=== PATIENT | male | born 1975 | race Caucasian/White ===

== ENCOUNTER 2023-08-22 19:26 | Inpatient (IN) | payer MEDICAID, SELFPAY ==
[2023-08-22] VITALS (8 sets, daily range): BP systolic 103–142; BP diastolic 46–106; BMI 27.4; BMI 26.9
[2023-08-22 16:58] LABS: % Basophils 0.3 % (0-2); % Immature Granulocytes 0.3 % (0-0.5); % Lymphocytes 19.3 % (20.5-51.1); % Monocytes 7.2 % (1.7-9.3); % Neutrophils 72.9 % (42.2-75.2); Absolute Lymphocytes 2.3 10^3/uL (1.2-3.4); Absolute Monocytes 0.9 10^3/uL (0.1-0.6); Absolute Neutrophils 8.7 10^3/uL (1.4-6.5); Hematocrit 48.8 % (39.0-52.0); Mean Corp Hgb Conc. 34.8 g/dL (33.0-37.0); Mean Corpuscular Hgb 29.8 pg (27.0-31.0); Mean Corpuscular Volume 85.5 fL (80.0-94.0); Mean Platelet Volume 8.6 fL (7.4-10.4); Nucleated Red Blood Cells % 0 % (-); Platelet Count 434 10^3/uL (130-400); Red Blood Cell Count 5.71 10^6/uL (4.70-6.10); Red Cell Dist. Width 11.9 % (11.5-14.5)
[2023-08-22 17:21] LABS: AST (SGOT) 33 U/L (17-59); Albumin 5.4 g/dl (3.5-5.0); Alkaline Phosphatase 98 U/L (38-126); Blood Urea Nitrogen 16 mg/dl (9-20); Calcium 9.8 mg/dl (8.4-10.2); Carbon Dioxide 13 mmol/L (22-30); Chloride 96 mmol/L (98-107); Glucose 98 mg/dl (70-99); Potassium 5.1 mmol/L (3.5-5.1); Sodium 133 mmol/L (135-145); Total Bilirubin 3.6 mg/dl (0.2-1.3); Total Protein 8.7 g/dl (6.3-8.2); eGFR > 60.00
--- NOTE | 2023-08-22 17:23 | ED.GENMED ---
History of Present Illness
General
Chief Complaint: Withdrawal Symptoms
Source: patient
Exam Limitations: none
Time Seen by Provider: 08/22/23 17:06
Nursing documentation reviewed up to this point in time: agreed with
History of Present Illness
History of Present Illness:
Patient to ED in alcohol withdrawal. States he has been clean for 10 years. 10 days ago he started drinking heavily again. Last drink was 12 hours ago. States he believes he had a seizure. Found himself on floor today, incontinent of urine.
Brought self to ED for eval. Visible tremors. +nausea.
Past History
Past History
ED Past Medical History: Psychiatric
Review of Systems
Review of Systems
Allergies reviewed?: Yes
All Other Systems: ROS reviewed and negative except as documented in HPI and ROS
Constitutional: Reports no symptoms
EENT: Reports no symptoms
Respiratory: Reports no symptoms
Cardiac: Reports no symptoms
ABD/GI: Reports no symptoms
: Reports no symptoms
Musculoskeletal: Reports no symptoms
Skin: Reports no symptoms
Neurological: Reports weakness and other (tremors)
Psychiatric: Reports no symptoms
Phy Exam
General Physical Exam
General Presentation: moderate distress
General age: appears stated age
General Skin: warm and dry
General Habitus: normal
General Mental: alert
Cardiovascular Exam
Cardiovascular Exam: regular rate/rhythm
Pulmonary Exam
Pulmonary Exam: lungs clear and no respiratory distress
Gastrointestinal Exam
Gastrointestinal Exam: normal bowel sounds and non tender
Musculoskeletal Exam
Musculoskeletal Exam: full ROM and neuro vasc intact
Skin Exam
Skin Exam: normal color, no rash and diaphoresis
Psychiatric Exam
Psychiatric Exam: normal mood/affect
Scores
Withdrawal Assessment of Alcohol
Withdrawal Assessment Completed?: Yes
Nausea and Vomiting: Mild nausea with no vomiting
Tactile Disturbances: Very mild itching, pins and needles, burning or numbness
Tremor: Severe, even with arms not extended
Auditory Disturbances: Not present
Paroxysmal Sweats: Beads of sweat obvious on forehead
Visual Disturbances: Not present
Anxiety: Moderately anxious, or guarded, so anxiety is inferred
Headache, Fullness in Head: Not present
Agitation: Moderately fidgety and restless
Orientation and clouding of sensorium: Oriented and can do serial additions
Total CIWA Score: 21
Alcohol Withdrawal Medication Recommendation: Equal to MSAS >11. Lorazepam 2-4mg IV NOW and re-assess q1hr
Course
Orders/Labs/Results
Orders:
Orders
08/22/23 Dinner
Regular
At Your Request: Full Participation
08/22/23 16:22
Electrocardiogram (*1) Urgent
Reason for Study: Shortness of Breath
EKG- Treatment ONCE
08/22/23 16:40
Alcohol Urgent
Complete Blood Count/With Diff Urgent
Comprehensive Metabolic Panel Urgent
Magnesium Urgent
Comment: ADDON
08/22/23 17:22
0.9% Sodium Chloride 1000 ml [Nss] 1,000 ml IV BOLUS
Lorazepam [Ativan] 2 mg IV NOW STA
08/22/23 17:32
Drug Screen, Urine [Urine Drug Abuse Screen] Urgent
Urinalysis Reflex To Culture Urgent
Dextrose 50%-Water [Dextrose 50% Syringe] 12.5 grams IV NOW STA
08/22/23 17:37
Ondansetron Injectable [Zofran] 4 mg IV NOW STA
08/22/23 17:38
Add On- LAB Urgent
Tests Added?: alcohol
08/22/23 17:43
FOLic ACID [Folvite] 1 mg 0.9% Sodium Chloride 50 ml [Nss] 50 ml IV NOW
08/22/23 18:00
0.9% Sodium Chloride 1000 ml [Nss] 1,000 ml Mvi, Adult [Multivitamin] 10 ml Thiamine Injection 100 mg IV 100 mls/hr
08/22/23 18:34
Admit/Transfer Patient As Directed
Co-Sign Provider:
Level of Care: Inpatient admission
Assign to:: ICU
Physician / Group: Shaye/Hospitalist
Diagnosis: Acute Alcohol Associated Seizure
Reason for Hospitalization: Alcohol Associated Seizure
Expected length of stay greater than two midnights?: Yes
ELOS- Estimated Length of Stay in days: 5
I certify the patient meets the requirements for IP care: Yes
08/22/23 18:39
Code Status As Directed
Resuscitation Status: Full Code
08/22/23 18:43
Add On- LAB Urgent
Tests Added?: magnesium
08/22/23 18:57
Lactic Acid Urgent
08/22/23 19:23
0.9% Sodium Chloride 500 ml [Nss] 500 ml IV BOLUS
08/22/23 20:39
0.9% Sodium Chloride [Nss (Preservative Free)] See Protocol IV PRN PRN
Bisacodyl [Dulcolax] 10 mg RECTAL [id number] PRN
Docusate W/Senna [Senokot-S] 1 tablet PO BIDPRN PRN
FOLic ACID [Folvite] 1 mg 0.9% Sodium Chloride 50 ml [Nss] 50 ml IV DAILYPRN
Heparin 5,000 units SC Q12
Lorazepam [Ativan] 1 mg IV Q1HPRN PRN
Lorazepam [Ativan] 1 mg PO Q2HPRN PRN
Lorazepam [Ativan] 2 mg IV Q1HPRN PRN
Polyethylene Glycol Powder [Miralax] 17 grams PO DAILYPRN PRN
Thiamine Injection 200 mg IV Q12
08/22/23 20:39
Case Management Consult Once
Case Management Consult: Other
Comment: Substance abuse counseling
Consult Chemical Research Technician [Chemical Research Technician Consult] Routine
Consulting Provider: Miriam,Molly Johnson
Was physician already notified: Yes
DIETARY CONSULT Routine
Reason for Consult: Nutrition support, possible refeeding guidelines
PSYCHIATRY CONSULT Routine
Consulting Provider: David Philippe
Was physician already notified: Yes
Activity As Directed
Activity Level: Out of Bed-Early Mobility
With Assistance
MSAS SCORE As Directed
MSAS Score 0-4: Repeat MSAS every 2 hours until 0-4 for three consecutive assessments, then every 4 hours x 48
hours.
MSAS Score 5-7: For MILD withdrawl symptoms. Repeat MSAS and RASS every 2 hours
MSAS Score 8-11: For MODERATE withdrawal symptoms. Repeat MSAS and RASS every 1 hour. Consider ICU or IMU
level of care.
MSAS Score > 11: For SEVERE withdrawal symptoms. Repeat MSAS and RASS every 1 hour. Notify provider, consider
ICU level of care.
MSAS Additional Instructions: If no improvement or no decrease in score from severe to moderate within 12
hours, consult psychiatry
MSAS Notify Provider: Notify provider if patient requires more than 10 mg of Lorazepam in eight hour period.
Neurological Checks As Directed
Frequency: Per unit guidelines
Vital Signs As Directed
Frequency: Per unit guidelines
DX Deep Vein Thrombosis Video Routine
08/22/23 22:00
Phenobarbital Sodium [Phenobarbital] 97.5 mg IV TID
08/23/23 06:00
Complete Blood Count/No Diff IN AM
Comprehensive Metabolic Panel IN AM
Lactic Acid IN AM
Protime [Prothrombin Time] IN AM
08/23/23 08:00
FOLic ACID [Folvite] 1 mg PO DAILY
08/24/23 22:00
Phenobarbital [Luminal] 64.8 mg PO TID
08/26/23 22:00
Phenobarbital [Luminal] 32.4 mg PO TID
Abnormal Lab Results
08/22/23 08/22/23
16:40 18:57
WBC 12.0 H 10^3/uL
(4.8-10.8)
Plt Count 434 H 10^3/uL
(130-400)
Absolute Neuts (auto) 8.7 H 10^3/uL
(1.4-6.5)
Absolute Monos (auto) 0.9 H 10^3/uL
(0.1-0.6)
Lymphocytes % 19.3 L %
(20.5-51.1)
Sodium 133 L mmol/L
(135-145)
Chloride 96 L mmol/L
(98-107)
Carbon Dioxide 13 L* mmol/L
(22-30)
Lactic Acid 5.1 H* mmol/L
(0.7-2.0)
Total Bilirubin 3.6 H mg/dl
(0.2-1.3)
Total Protein 8.7 H g/dl
(6.3-8.2)
Albumin 5.4 H g/dl
(3.5-5.0)
08/22/23 16:40
08/22/23 16:40
Vital Signs
Initial and Last Documented VS:
Initial Vital Signs
Temp Pulse Resp BP Pulse Ox
97.8 F 120 16 142/106 98
08/22/23 16:18 08/22/23 16:18 08/22/23 16:18 08/22/23 16:18 08/22/23 16:18
Last Documented Vital Signs
Temp Pulse Resp BP Pulse Ox
98.8 F 108 21 109/46 93
08/22/23 21:01 08/22/23 22:15 08/22/23 22:15 08/22/23 22:00 08/22/23 22:15
*Critical Care Note
Total Time (30-74mins, 75-104mins- exclusive of procedures): Not Applicable
Update Note
Update Note:
Case discussed with Dr. Gallardo. CO2 13 Banana bag with thiamine, folate ordered, dextrose. Tremors and diaphoresis. Given 2mg IV ativan. 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 Will admit to hospitalist. Bcares will
be in to speak with patient.
ED Attending Note
-
Portions of this chart may have been created with voice recognition software.� Occasional wrong word or��sound alike� substitutions may have occurred due to the inherent limitations of voice recognition software.
Discharge Plan
Departure
Patient Disposition: Admit
Date of Disposition: 08/22/23
Time of Disposition: 17:45
Presentation/result/management discussed w/ accepting MD/DO: Hospitalist
Condition: Fair
Covid-19: Not Applicable
Discharge Problem:
Alcohol withdrawal
Interventions
Interventions:
*Risk Screen - Suicide Last Done: 08/22/23 20:53
*General Assessment Last Done: 08/22/23 17:26
*Neglect/Abuse Screening Last Done: 08/22/23 17:26
ED- Fall Risk Assessment Last Done: 08/22/23 17:26
*ED COVID-19 Vaccine History Last Done: 08/22/23 20:53
*Nursing Disposition Last Done: 08/22/23 20:34
ED- Neurological Assessment Last Done: 08/22/23 17:26
ED-Psychological Assessment Last Done: 08/22/23 17:26
Discharge Date and Time
Discharge Date/Time: 08/22/23 20:35
[2023-08-22 17:27] LABS: ALT (SGPT) < 30 U/L (0-50)
[2023-08-22] MEDS: NSS 1000 IV (17:30)
[2023-08-22] MEDS: ATIVAN 2 MG IV ×2 (17:30→20:40)
[2023-08-22] MEDS: ZOFRAN 4 MG IV (17:42)
[2023-08-22] MEDS: DEXTROSE 50% SYRINGE 12.5 GRAMS IV (17:46)
[2023-08-22 17:58] LABS: Alcohol 176 mg/dl
[2023-08-22] MEDS: MULTIVITAMIN 1011 MG IV (18:15)
[2023-08-22] MEDS: MULTIVITAMIN 1011 ML IV (18:15)
[2023-08-22] MEDS: FOLVITE 50.2000000000000028 MG IV (18:15)
--- NOTE | 2023-08-22 18:51 | W.PN.HOSP.TC ---
Today's Communication/Plan
-
admit ICU
banana bag
Phenobarb supplement
MSAS protocol
Assessment / Plan
Assessment / Plan
Binge drinking past 10 days with alcohol associated seizure event
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 Episode of seizure, found himself on floor covered in urine. Does not know how long unconscious. Remains very tremulous
BMP with evidence of acidosis
requested ER order stat Lactic Acid
Elevated Bilirubin
P: admit to ICU post seizure
Psych and Sewing Machine Repairer Helper consult will be ordered
full code
Heparin for DVT prophylaxis
see dictated note
Anticipated Discharge: > 48 hours
Subjective/Interval History
-
Date of Service: August 22, 2023
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
Objective Data
-
Labs:
Laboratory Results
08/22/23
16:40
WBC 12.0 H
Hgb 17.0
Hct 48.8
Plt Count 434 H
Sodium 133 L
Potassium 5.1
Chloride 96 L
Carbon Dioxide 13 L*
BUN 16
Creatinine 1.0
Glucose 98
Calcium 9.8
Total Bilirubin 3.6 H
AST 33
ALT < 30
Alkaline Phosphatase 98
Vital Signs:
Vital Signs
Temp Pulse Resp BP Pulse Ox
97.8 F 96 11 117/84 97
08/22/23 16:18 08/22/23 18:15 08/22/23 18:15 08/22/23 18:00 08/22/23 18:15
Review of Systems
-
History Source: Patient and Coordinated Provider
Constitutional: Denies Fever
Respiratory: Reports No Symptoms
Cardiac: Reports No Symptoms
Abdomen/GI: Reports No Symptoms
Genitourinary: Reports No Symptoms
Neuro: Reports Tremors
Physical Exam
-
General: Well Developed, Well Nourished and No Apparent Distress
HEENT: Normocephalic, Atraumatic and Moist Mucous Membranes
Respiratory: Clear to Auscultation; Negative Wheezes, Rales or Rhonchi
Cardiac: Regular Rhythm and S1/S2
GI: Nontender and Nondistended
Musculoskeletal: No Clubbing, No Cyanosis and No Edema
Neuro: Awake, Alert and Oriented
[2023-08-22 19:16] LABS: Lactic Acid 5.1 mmol/L (0.7-2.0)
[2023-08-22 19:23] LABS: Magnesium 2.3 mg/dl (1.6-2.3)
[2023-08-22] MEDS: NSS 500 IV (19:41)
--- NOTE | 2023-08-22 21:05 | PTCARENOTE ---
pt received from er via stretcher- aox3, on room air, nsr to st on monitor. msas 11- pt cooperative, follows all commands. ivf infusing. ativan given per protocol. education provided about safety and poc- vrebalized understanding. all safety
precautions in place. poc discussed with efrain mora.
[2023-08-22] MEDS: PHENOBARBITAL 97.5 MG IV (21:11)
[2023-08-22] MEDS: HEPARIN 5000 UNITS SC (21:11)
[2023-08-22] MEDS: THIAMINE INJECTION 200 MG IV (21:11)
[2023-08-22] MEDS: NSS (PRESERVATIVE FREE) 1 ML IV (21:11)
[2023-08-23] VITALS (23 sets, daily range): BP systolic 96–127; BP diastolic 49–89; BMI 26.9
--- NOTE | 2023-08-23 00:59 | PTCARENOTE ---
assessment unchanged, msas 3. resting comfortably in bed at this time.
[2023-08-23] MEDS: NSS (PRESERVATIVE FREE) 1 ML IV ×4 (01:04→14:17)
[2023-08-23] MEDS: ATIVAN 2 MG IV ×6 (01:04→23:00)
--- NOTE | 2023-08-23 01:08 | PTCARENOTE ---
msas 11- given ativan per protocol- assessment unchanged further
[2023-08-23 04:45] LABS: Hematocrit 37.7 % (39.0-52.0); Hemoglobin 13.6 g/dL (13.0-18.0); Mean Corp Hgb Conc. 36.1 g/dL (33.0-37.0); Mean Corpuscular Volume 83.2 fL (80.0-94.0); Mean Platelet Volume 8.5 fL (7.4-10.4); Platelet Count 293 10^3/uL (130-400); Red Blood Cell Count 4.53 10^6/uL (4.70-6.10); Red Cell Dist. Width 11.9 % (11.5-14.5); White Blood Cell Count 9.9 10^3/uL (4.8-10.8)
[2023-08-23 04:50] LABS: Urine Albumin Trace (Neg - Trace); Urine Bilirubin Negative (Negative); Urine Character Clear (Clear); Urine Color Yellow; Urine Glucose Negative (Negative); Urine Ketone 2+ (Negative); Urine Leukocyte Negative (Negative); Urine Nitrite Negative (Negative); Urine Occult Blood Negative (Negative); Urine Urobilinogen Negative (Neg - 1+)
[2023-08-23 04:54] LABS: INR 1.06; PT 13.6 Sec (11.4-14.6)
[2023-08-23 05:45] LABS: Amphetamines Negative (Negative); Barbiturates Positive (Negative); Benzodiazepines Positive (Negative); Buprenorphine Negative (Negative); Cocaine Negative (Negative); Marijuana Positive (Negative); Methadone Negative (Negative); Methamphetamines Negative (Negative); Opiates Negative (Negative); Phencyclidine Negative (Negative); Tricyclic Antidepressants Negative (Negative)
[2023-08-23 05:51] LABS: ALT (SGPT) 16 U/L (0-50); AST (SGOT) 25 U/L (17-59); Albumin 3.9 g/dl (3.5-5.0); Alkaline Phosphatase 66 U/L (38-126); Blood Urea Nitrogen 21 mg/dl (9-20); Calcium 8.7 mg/dl (8.4-10.2); Carbon Dioxide 23 mmol/L (22-30); Chloride 104 mmol/L (98-107); Estimated Creatinine Clearance > 125 ml/min; Glucose 94 mg/dl (70-99); Lithium < 0.2 mmol/L (0.6-1.2); Potassium 4.9 mmol/L (3.5-5.1); Sodium 135 mmol/L (135-145); Total Bilirubin 4.2 mg/dl (0.2-1.3); Total Protein 6.5 g/dl (6.3-8.2); eGFR > 60.00
[2023-08-23 06:24] LABS: Fentanyl, Urine Negative (Negative)
--- NOTE | 2023-08-23 07:11 | CON.INTV ---
Consultation
Consultation Request
Date/Time Consultation Requested: 05/23/23
Date/Time Consultation Performed: 05/23/23
Performing Provider: Miriam
Reason for Consultation: ICU
Medical History
-
History of Present Illness:
Patient is a 48-year-old male with previous history of chronic alcohol abuse, presenting to ER following being found down on floor today, incontinent of urine. He has visible tremors on arrival with nausea. Had been sober for 10 years, started
binge drinking in the past 10 days, 'gallons' of liquor/wine/beer, which was continuous. Last drink was 12 hours prior to presentation. May have had a seizure, patient does not recall.
He is admitted to ICU for acute alcohol intoxication with concerns for withdrawal, placed on phenobarbital taper.
Past Medical History
Past Medical History: Other (see list below)
Social History
Tobacco: Non-smoker
Alcohol: Binge Drinker
Drug: None
Family History
Family History: Reviewed & Not Pertinent
Allergies / Home Medications
Allergies
Allergy/AdvReac Type Severity Reaction Status Date / Time
Penicillins Allergy Unknown Verified 08/22/23 16:20
Home Medications
�Medication �Instructions �Recorded �Confirmed �Last Taken �Type
clonazepam 0.5 mg tablet 0.5 mg PO BIDPRN PRN anxiety 08/22/23 08/22/23 08/21/23 History
fluoxetine 10 mg capsule 30 mg PO DAILY Mental 08/22/23 08/22/23 08/21/23 History
Health/Anxiety
gabapentin 400 mg capsule 400 mg PO TID Mental Health/Anxiety 08/22/23 08/22/23 08/21/23 History
lithium carbonate 450 mg 900 mg PO HS Mental Health/Anxiety 08/22/23 08/22/23 08/21/23 History
tablet,extended release
Review of Systems
-
History Source: Patient
All other systems: Negative unless noted
Vitals / Labs / Diagnostic Testing
Vital Signs
Temp Pulse Resp BP Pulse Ox
99 F 89 18 96/51 93
08/23/23 04:46 08/23/23 06:00 08/23/23 06:00 08/23/23 06:00 08/23/23 06:00
Lab Data
08/23/23 04:34
08/23/23 04:34
Laboratory Results
08/23/23
04:34
PT 13.6
INR 1.06
Diagnostic Testing:
Physical Exam
-
HEENT: Normocephalic, Anicteric and Moist Mucous Membranes
Cardiovascular: S1/S2 and Regular Rhythm
Respiratory: Clear and Non-Labored Respirations
GI: Soft, Non Distended and Non Tender
Neurology: Awake, Alert, Oriented, AO x 3, No Motor Deficits and Tremors
Skin: Warm, Dry and Good Color
General: Comfortable and Other (anxious appearing but coherent)
Assessment
-
Patient is a 48-year-old male with previous history of chronic alcohol abuse, presenting to ER following being found down on floor today, incontinent of urine. He has visible tremors on arrival with nausea. Had been sober for 10 years, started
binge drinking in the past 10 days, 'gallons' of liquor/wine/beer, which was continuous. Last drink was 12 hours prior to presentation. May have had a seizure, patient does not recall. +AH/VH
He is admitted to ICU for acute alcohol intoxication with concerns for withdrawal, placed on phenobarbital taper.
Acute alcohol intoxication
Rule out seizure
High risk alcohol withdrawal
DTs
Mild leukocytosis
Mild hyponatremia
Metabolic acidosis
Lactic acidosis
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
Chronic alcohol abuse
Plan
ETOH w/d, high risk
DTs likely with +AH/VH
Binge drinking last 10 days, 'gallons'
Denies pain at this time.
Pain/sedation: Phenobarb + MSAS, can add precedex if needed
Psych eval
RASS goals: 0
Hemodynamically stable, not requiring pressors.
Cardiac history reviewed--none
No prior ECHO for review
Monitor on telemetry
Oxygen needs: stable on RA
Prior history of lung disease: none/nonsmoker
Supplemental O2 as indicated to maintain sats > 89%
CXR/CT reviewed indicating small R infiltrate possibly, but otherwise no acute findings
Advance diet as tolerated
Oil Mixer recommendations
Aspiration precautions, HOB > 30 degrees
Speech therapy eval can be considered if at elevated risk
GI prophylaxis if indicated
Creat at baseline, no history of renal disease
Void trials
Follow urine output, critical I/Os
Replete electrolytes as needed
No signs/symptoms suspicious for infectious etiology at this time
Observe off antibiotics for now
Follow fever trend, WBC count
CBC stable, no signs of bleeding or coagulopathy.
DVT prophylaxis as assessed based on risk, including mechanical SCDs
Can transfuse if indicated for Hb <7, plt < 10
INR WNL
No prior h/o diabetes or thyroid disease
Monitor accuchecks PRN/SS coverage if needed
We will follow
Diagnostic Data
Chest X-Ray: 08/23/23, possible small R infiltrate, elevated RHD
CT Scan:
Echo:
PFT's:
Reports and relevant images were personally reviewed.
-----
Critical care time 50 mins -- this includes review of history, physical exam, medications, hemodynamic/ventilator parameters, laboratory data, imaging and discussion with house staff, pharmacy, respiratory therapy, patternmaker pressure cast, and nursing.
[2023-08-23] MEDS: PHENOBARBITAL 97.5 MG IV ×3 (07:57→20:29)
[2023-08-23] MEDS: HEPARIN 5000 UNITS SC ×2 (07:57→20:29)
[2023-08-23] MEDS: FOLVITE 1 MG PO (07:57)
[2023-08-23] MEDS: NSS (PRESERVATIVE FREE) 0.5 ML IV ×3 (07:58→17:11)
[2023-08-23] MEDS: ATIVAN 1 MG IV ×4 (07:58→19:38)
[2023-08-23] MEDS: THIAMINE INJECTION 200 MG IV ×2 (07:59→20:29)
--- NOTE | 2023-08-23 09:00 | PTCARENOTE ---
pt drowsy , pleasant , MSAS 9 , lorazepam given as per protocol , pt NST on monitor BP 105/55 , on room air with sat of 92% and above , lungs are clear , abdomen is soft and non tender , pt tolerated breakfast eating < 50% , pt is diaphoretic and
pt was encouraged to drink fluids , labs noted , will continue to monitor MSAS , pt states he has been drinking large amt of alcohol for 10 days straight
--- NOTE | 2023-08-23 10:42 | CS.PSYCHR ---
Consult Summary - Psychiatry
-
Pt is 48 yo male with history of alcohol dependence, presented after alcohol relapse 10 days ago, with intoxication seizure. 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 Pt states he experienced anxiety sx and went to [facility] for treatment, was prescribed meds. He then had a
'panic attack' and was admitted to the [facility] for 15 days. Pt states he found out there that he was not welcome to return home, went to the [facility] for a period, now staying with mother. Pt was recently started on Prozac, Gabapentin,
[place], and Klonopin prn- states taking it 2 to 3 times per day. Pt reports getting psychiatric treatment at [facility], filing Rx at [facility] in [place]. Pt states he feels down, with negative mind set, doesn't care what happens,
although he denies suicidal plan or intent. Alcohol level on admission 176; UDS + for malcolm,kari (after both given in the ED), MJ. [place]undo level < 0.2.
Psych Hx: first admission above at [facility] recently for depression/anxiety. Past alcohol rehab. Hx of alcohol withdrawal seizures x 6 per pt
Medications: Prozac increased to 30 mg about 1 week ago, Gabapentin 400 mg TID, [place] 900 mg HS, Klonopin 0.5 mg prn 2 to 3 times per day. 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
SH: after 7 years, moved out. 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
MSE: alert, oriented, calm, cooperative, making good eye contact. Mood dysphoric, affect appropriate. No signs of shannan. Denies active SI, has some vague/passive thoughts of better off dying. No signs of psychosis, reports some A/V
hallucinations last night, denies now. Insight fair, states he has no control over alcohol use once he starts
Imp: Alcohol Use d/o, severe; suspected seizure due to alcohol intoxication; withdrawal symptoms- tremors, nausea, hallucinations overnight
Unspecified depression/anxiety, reaction to recent stressors.
Rec: Would restart Prozac and Gabapentin; hold off [place] (may be for antidepressant augmentation, but usually given at low dose). Return to outpatient med mgt when medically cleared.
Agree with Phenobarb taper and MSAS protocol. Consider alcohol rehab referral when medically stable.
Will follow
[2023-08-23] MEDS: ZOFRAN 4 MG IV (12:47)
--- NOTE | 2023-08-23 13:13 | PTCARENOTE ---
pt co nausea medicated with Zofran as ordered, pt MSAS 12 and medicated with 2mg IV Lorazepam as per protocol
--- NOTE | 2023-08-23 14:21 | CM ---
CM following re: discharge planning.
Discussed in rounds, reviewed pt's chart, met with pt.
Pt is a 48 year old male, admitted with primary dx of Acute alcohol-associated seizure.
Pt reports he lives with parents in a 2[place], 4 steps to enter, has 2 children: one in college and another child lives with her mother. 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 pt admitted to
significant h/o alcohol abuse, has been drinking heavily in the past months: scotch, vodka, beer, etc. Pt stated he went to inpatient D&A rehab in 1
--- NOTE | 2023-08-23 14:29 | CM ---
CM following re: discharge planning.
Discussed in rounds, reviewed pt's chart, met with pt.
Pt is a 48 year old male, admitted with primary dx of Acute alcohol-associated seizure.
Pt reports he lives with parents in a 2[place], 4 steps to enter, has 2 children: one in college and another child lives with her mother. 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 pt admitted to
significant h/o alcohol abuse, has been drinking heavily in the past months: scotch, vodka, beer, etc. Pt stated he went to inpatient D&A rehab in 2016, has been sober since than and relapsed a month ago. Pt stated he is interested to go to
inpatient D&A rehab and he preferred [facility] D&A rehab,or [facility] D&A rehab. Pt expressed his agreement to meet with [facility] team. A referral to [facility] made, spoke and met with BCARES MARIAN Moran and MARIAN Danielle. MARIAN Danielle met with pt and he
will assist the pt with admission to [facility] or [facility].
PCP: Naresh Mckinnon
Pharmacy: [facility]
D/C plan: Inpatient D&A rehab. BCARES team assisting with placement.
CM will follow with discharge plan updates as hospitalization progresses
[2023-08-23] MEDS: NEURONTIN 300 MG PO ×2 (16:02→20:28)
--- NOTE | 2023-08-23 16:50 | W.PN.HOSP.TC ---
Today's Communication/Plan
-
resume IVF
Assessment / Plan
Assessment / Plan
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 Episode of seizure, found himself on floor covered in urine. Does not know how long unconscious. Remains very tremulous
BMP with evidence of acidosis on admission
markedly improved. Lactic Acid 5.1-->1.0
CO2 13-->23
Elevated Bilirubin
3.6-->4.2, with nl AST/ALT
P: admit to ICU post seizure
Psych and Rock Crusher consult will be ordered
full code
Heparin for DVT prophylaxis
resume IVF
Anticipated Discharge: > 48 hours
Subjective/Interval History
-
Date of Service: August 23, 2023
Still tremulous, but does not feel as ill as at time of admission
Objective Data
-
Labs:
Laboratory Results
08/23/23
04:34
WBC 9.9
Hgb 13.6
Hct 37.7 L
Plt Count 293 D
PT 13.6
INR 1.06
Sodium 135
Potassium 4.9
Chloride 104
Carbon Dioxide 23
BUN 21 H
Creatinine 0.8
Glucose 94
Calcium 8.7
Total Bilirubin 4.2 H
AST 25
ALT 16
Alkaline Phosphatase 66
Vital Signs:
Vital Signs
Temp Pulse Resp BP Pulse Ox
98.7 F 86 21 127/82 94
08/23/23 15:18 08/23/23 13:00 08/23/23 13:00 08/23/23 13:00 08/23/23 08:30
I&O
08/22/23 08/23/23 08/24/23
06:59 06:59 06:59
Intake Total 1000 / 1000 500 / 500
Output Total 600 / 600 400 / 400
Balance 400 / 400 100 / 100
Review of Systems
-
History Source: Patient and Coordinated Provider
Constitutional: Denies Fever
Respiratory: Reports No Symptoms
Cardiac: Reports No Symptoms
Abdomen/GI: Reports No Symptoms
Genitourinary: Reports No Symptoms
Neuro: Reports Tremors
Physical Exam
-
General: Well Developed, Well Nourished and No Apparent Distress
HEENT: Normocephalic, Atraumatic and Moist Mucous Membranes
Respiratory: Clear to Auscultation; Negative Wheezes, Rales or Rhonchi
Cardiac: Regular Rhythm and S1/S2
GI: Nontender and Nondistended
Musculoskeletal: No Clubbing, No Cyanosis and No Edema
Neuro: Awake, Alert, Oriented and Tremors
Psych: Calm; Negative Confused
[2023-08-23] MEDS: D5/0.45%NACL 1000 IV (17:09)
[2023-08-23] MEDS: THERAGRAN 1 TABLET PO (17:09)
--- NOTE | 2023-08-23 17:52 | PTCARENOTE ---
no change in assessments
--- NOTE | 2023-08-23 19:55 | PTCARENOTE ---
rec'd patient. MSAS 8, ativan given per protocol. pt oriented x3, admits to frequent hallucinations, tremors visible. ST on monitor. afebrile. on RA, denies SOB. reg diet, dinner provided at bedside. urinal at bedside. IVF infusing. call adam within
reach, care ongoing.
[2023-08-24] VITALS (23 sets, daily range): BP systolic 90–126; BP diastolic 53–89; BMI 26.9
[2023-08-24] MEDS: ATIVAN 2 MG IV ×2 (01:33→13:55)
[2023-08-24] MEDS: D5/0.45%NACL 1000 IV (04:07)
[2023-08-24] MEDS: ATIVAN 1 MG IV ×4 (04:07→22:08)
--- NOTE | 2023-08-24 04:30 | PTCARENOTE ---
AM labs sent. PRN ativan given per MSAS protocol overnight. fresh linens placed under pt this morning. pt admits to getting decent rest overnight. call adam within reach, care ongoing.
[2023-08-24 04:31] LABS: % Basophils 0.2 % (0-2); % Eosinophils 4.3 % (0-6); % Immature Granulocytes 0.4 % (0-0.5); % Lymphocytes 25.1 % (20.5-51.1); % Monocytes 15.1 % (1.7-9.3); % Neutrophils 54.9 % (42.2-75.2); Absolute Eosinophils 0.2 10^3/uL (0-0.7); Absolute Lymphocytes 1.3 10^3/uL (1.2-3.4); Absolute Monocytes 0.8 10^3/uL (0.1-0.6); Absolute Neutrophils 2.8 10^3/uL (1.4-6.5); Hematocrit 37.7 % (39.0-52.0); Hemoglobin 12.9 g/dL (13.0-18.0); Mean Corp Hgb Conc. 34.2 g/dL (33.0-37.0); Mean Corpuscular Hgb 30.1 pg (27.0-31.0); Mean Corpuscular Volume 87.9 fL (80.0-94.0); Mean Platelet Volume 8.7 fL (7.4-10.4); Nucleated Red Blood Cells % 0 % (-); Platelet Count 213 10^3/uL (130-400); Red Blood Cell Count 4.29 10^6/uL (4.70-6.10); Red Cell Dist. Width 11.9 % (11.5-14.5); White Blood Cell Count 5.1 10^3/uL (4.8-10.8)
[2023-08-24 05:26] LABS: ALT (SGPT) 15 U/L (0-50); AST (SGOT) 23 U/L (17-59); Albumin 3.3 g/dl (3.5-5.0); Alkaline Phosphatase 68 U/L (38-126); Blood Urea Nitrogen 21 mg/dl (9-20); Calcium 8.4 mg/dl (8.4-10.2); Carbon Dioxide 24 mmol/L (22-30); Chloride 104 mmol/L (98-107); Direct Bilirubin 0.2 mg/dl (0.0-0.4); Estimated Creatinine Clearance > 125 ml/min; Glucose 106 mg/dl (70-99); Potassium 3.7 mmol/L (3.5-5.1); Sodium 133 mmol/L (135-145); Total Bilirubin 2.1 mg/dl (0.2-1.3); Total Protein 5.9 g/dl (6.3-8.2); eGFR > 60.00
--- NOTE | 2023-08-24 07:10 | W.PN.INTV ---
Today's Communication / Plan
Recommendations
Increased ativan use overnight, continue phenobarb dosing at 97.5mg without taper
Continue MSAS and observation
Tolerating diet, can stop IVFs
Continue supportive care
Assessment
-
Patient is a 48-year-old male with previous history of chronic alcohol abuse, presenting to ER following being found down on floor today, incontinent of urine. He has visible tremors on arrival with nausea. Had been sober for 10 years, started
binge drinking in the past 10 days, 'gallons' of liquor/wine/beer, which was continuous. Last drink was 12 hours prior to presentation. May have had a seizure, patient does not recall. +AH/VH
He is admitted to ICU for acute alcohol intoxication with concerns for withdrawal, placed on phenobarbital taper.
Acute alcohol intoxication
Acute alcohol withdrawal
DTs
Mild leukocytosis
Mild hyponatremia
Metabolic acidosis
Lactic acidosis
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
Chronic alcohol abuse
Plan
ETOH w/d, high risk
DTs likely with +AH/VH
Binge drinking last 10 days, 'gallons'
Denies pain at this time.
Pain/sedation: Phenobarb + MSAS, can add precedex if needed
Psych eval
RASS goals: 0
Hemodynamically stable, not requiring pressors.
Cardiac history reviewed--none
No prior ECHO for review
Monitor on telemetry
Oxygen needs: stable on RA
Prior history of lung disease: none/nonsmoker
Supplemental O2 as indicated to maintain sats > 89%
CXR/CT reviewed indicating small R infiltrate possibly, but otherwise no acute findings
Advance diet as tolerated
Baker Bench recommendations
Aspiration precautions, HOB > 30 degrees
Speech therapy eval can be considered if at elevated risk
GI prophylaxis if indicated
Creat at baseline, no history of renal disease
Void trials
Follow urine output, critical I/Os
Replete electrolytes as needed
No signs/symptoms suspicious for infectious etiology at this time
Observe off antibiotics for now
Follow fever trend, WBC count
CBC stable, no signs of bleeding or coagulopathy.
DVT prophylaxis as assessed based on risk, including mechanical SCDs
Can transfuse if indicated for Hb <7, plt < 10
INR WNL
No prior h/o diabetes or thyroid disease
Monitor accuchecks PRN/SS coverage if needed
Diagnostic Data
Chest X-Ray: 08/23/23, possible small R infiltrate, elevated RHD
CT Scan:
Echo:
PFT's:
Reports and relevant images were personally reviewed.
-----
Critical care time 35 mins -- this includes review of history, physical exam, medications, hemodynamic/ventilator parameters, laboratory data, imaging and discussion with house staff, pharmacy, respiratory therapy, office services representative, and nursing.
Subjective Dataa
Subjective Data
Date of Service:
Date of Service: August 24, 2023
Chief Complaint: Rn Field Follow Up
Subjective:
still tremulous, received 14mg ativan overnight
still with hallucinations
tolerating diet
Objective Data
Data Reviewed
Vital Signs / I&O / Oxygen:
Vital Signs
Temp Pulse Resp BP Pulse Ox
98.5 F 64 13 91/56 94
08/24/23 04:23 08/24/23 06:00 08/24/23 06:00 08/24/23 06:00 08/24/23 06:00
Intake and Output
08/23/23 08/24/23 08/25/23
06:59 06:59 06:59
Intake Total 1000 / 1000 4270 / 4270
Output Total 600 / 600 800 / 800
Balance 400 / 400 3470 / 3470
SaO2 94
Physical Exam
General: Good Appetite and Other (anxious)
HEENT: Normocephalic, Anicteric and Moist Mucous Membranes
Cardiovascular: S1-S2 and Regular Rhythm
Respiratory: Clear and Non-Labored Respirations
GI: Soft, Non Distended and Non Tender
Neurology: Awake, Alert, Oriented, AO x 3, No Motor Deficits, Tremors and Other (+AH/VH)
Skin: Warm and Dry
Labs/Micro/Reports
Lab Data
08/24/23 04:21
08/24/23 04:21
--- NOTE | 2023-08-24 08:00 | PTCARENOTE ---
pt drowsy , oriented to time and place, pt MSAS 7-8 , pt NSR on monitor , BP 91/56, on room air with sat of 95% , pt is very diaphoretic , tremulous , having hallucinations at times , impulsive at times , tolerating diet , good appetite , voiding in
urinal
[2023-08-24] MEDS: THERAGRAN 1 TABLET PO (08:46)
[2023-08-24] MEDS: PROZAC 20 MG PO (08:46)
[2023-08-24] MEDS: NEURONTIN 300 MG PO ×3 (08:46→20:14)
[2023-08-24] MEDS: PHENOBARBITAL 97.5 MG IV ×2 (08:47→15:20)
[2023-08-24] MEDS: HEPARIN 5000 UNITS SC (08:47)
[2023-08-24] MEDS: FOLVITE 1 MG PO (08:47)
[2023-08-24] MEDS: THIAMINE INJECTION 200 MG IV ×2 (08:48→20:14)
[2023-08-24] MEDS: NSS (PRESERVATIVE FREE) 0.5 ML IV (10:17)
--- NOTE | 2023-08-24 12:31 | PTCARENOTE ---
MSAS now 4 , pt is comfortable , will continue to monitor
--- NOTE | 2023-08-24 12:44 | W.PN.UPDATE ---
Update Note
Progress Note Update
patient seen chart reviewed. discussed with nursing. the patient was very sedated. i was able to wake him and we talked briefly about his psychiatric medications. he wanted to know if he should resume lithium. it sounds as though lithium was being
used as a adjunct to rx of depression for patient rather than as mood stabilizer for bipolar. i could not elicit sx which would suggest bipolar. that said would wait a bit longer and make a decision as to whether it should be resumed when he is out
of the period of etoh withdrawal. he asked if we could continue our conversation tomorrow 'when i am more lucid.' no changes made in his meds continue as currently
[2023-08-24] MEDS: NSS (PRESERVATIVE FREE) 1 ML IV (13:55)
--- NOTE | 2023-08-24 17:04 | W.PN.HOSP.TC ---
Today's Communication/Plan
-
pt eating well, will stop IVF
continue in ICU for now
Assessment / Plan
Assessment / Plan
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
Pt states was abstinent for 10 years, due to life stresses started to binge drink 10 days PATIENT REGISTRAR. Episode of seizure, found himself on floor covered in urine. Does not know how long unconscious. Remains very tremulous, as per nursing, has been
eating well
BMP with evidence of acidosis on admission
markedly improved. Lactic Acid 5.1-->1.0
CO2 13-->23-->24
Elevated Bilirubin
3.6-->4.2-->2.1, with nl AST/ALT
Direct Bili 0.2
P: admit to ICU post seizure
Psych and Social Media Marketing Specialist consult will be ordered
full code
Heparin for DVT prophylaxis
will stop IVF
Anticipated Discharge: > 48 hours
Subjective/Interval History
-
Date of Service: August 24, 2023
Awake, alert
Objective Data
-
Labs:
Laboratory Results
08/24/23
04:21
Sodium 133 L
Potassium 3.7
Chloride 104
Carbon Dioxide 24
BUN 21 H
Creatinine 0.8
Glucose 106 H
Calcium 8.4
Total Bilirubin 2.1 H
AST 23
ALT 15
Alkaline Phosphatase 68
Vital Signs:
Vital Signs
Temp Pulse Resp BP Pulse Ox
97.8 F 74 20 96/72 98
08/24/23 12:26 08/24/23 16:00 08/24/23 16:00 08/24/23 16:00 08/24/23 10:00
I&O
08/23/23 08/24/23 08/25/23
06:59 06:59 06:59
Intake Total 1000 / 1000 4270 / 4350 1550 / 1550
Output Total 600 / 600 800 / 1700 2200 / 2200
Balance 400 / 400 3470 / 2650 -650 / -650
Review of Systems
-
History Source: Patient and Coordinated Provider
Constitutional: Denies Fever
Respiratory: Reports No Symptoms
Cardiac: Reports No Symptoms
Abdomen/GI: Reports No Symptoms
Genitourinary: Reports No Symptoms
Neuro: Reports Tremors
Physical Exam
-
General: Well Developed, Well Nourished and No Apparent Distress
HEENT: Normocephalic, Atraumatic and Moist Mucous Membranes
Respiratory: Clear to Auscultation; Negative Wheezes, Rales or Rhonchi
Cardiac: Regular Rhythm and S1/S2
GI: Nontender and Nondistended
Musculoskeletal: No Clubbing, No Cyanosis and No Edema
Neuro: Awake, Alert, Oriented and Tremors
Psych: Calm; Negative Confused
[2023-08-24] MEDS: LOVENOX 40 MG SC (17:32)
[2023-08-24] MEDS: ATIVAN 1 MG PO (20:14)
[2023-08-24] MEDS: LUMINAL 64.7999999999999972 MG PO (20:14)
--- NOTE | 2023-08-24 20:20 | PTCARENOTE ---
rec'd patient. MSAS 5, PO ativan given per protocol. pt oriented x3, admits to frequent hallucinations, mild tremors visible. SR on monitor. afebrile. on RA, denies SOB. reg diet, urinal at bedside. both PIVs occluded upon assessment, VAT paged. pt
educated to use call adam when he feel he needs to urinate rather than get out of bed for safety reasons. bed alarm on. call adam within reach, care ongoing.
[2023-08-25] VITALS (16 sets, daily range): BP systolic 93–121; BP diastolic 55–71; BMI 27.2
[2023-08-25] MEDS: ATIVAN 1 MG IV ×3 (01:56→13:36)
[2023-08-25 04:35] LABS: % Basophils 0.3 % (0-2); % Eosinophils 5.5 % (0-6); % Immature Granulocytes 0.5 % (0-0.5); % Lymphocytes 22.9 % (20.5-51.1); % Monocytes 12.5 % (1.7-9.3); % Neutrophils 58.3 % (42.2-75.2); Absolute Eosinophils 0.3 10^3/uL (0-0.7); Absolute Lymphocytes 1.3 10^3/uL (1.2-3.4); Absolute Monocytes 0.7 10^3/uL (0.1-0.6); Absolute Neutrophils 3.4 10^3/uL (1.4-6.5); Hematocrit 36.9 % (39.0-52.0); Hemoglobin 13.1 g/dL (13.0-18.0); Mean Corp Hgb Conc. 35.5 g/dL (33.0-37.0); Mean Corpuscular Hgb 30.3 pg (27.0-31.0); Mean Corpuscular Volume 85.4 fL (80.0-94.0); Mean Platelet Volume 8.8 fL (7.4-10.4); Nucleated Red Blood Cells % 0 % (-); Platelet Count 236 10^3/uL (130-400); Red Blood Cell Count 4.32 10^6/uL (4.70-6.10); Red Cell Dist. Width 11.9 % (11.5-14.5); White Blood Cell Count 5.8 10^3/uL (4.8-10.8)
[2023-08-25 04:59] LABS: ALT (SGPT) 16 U/L (0-50); AST (SGOT) 23 U/L (17-59); Albumin 3.4 g/dl (3.5-5.0); Alkaline Phosphatase 71 U/L (38-126); Blood Urea Nitrogen 16 mg/dl (9-20); Calcium 8.8 mg/dl (8.4-10.2); Carbon Dioxide 26 mmol/L (22-30); Chloride 104 mmol/L (98-107); Estimated Creatinine Clearance > 125 ml/min; Glucose 103 mg/dl (70-99); Potassium 3.8 mmol/L (3.5-5.1); Sodium 136 mmol/L (135-145); Total Bilirubin 1.2 mg/dl (0.2-1.3); Total Protein 5.9 g/dl (6.3-8.2); eGFR > 60.00
--- NOTE | 2023-08-25 05:00 | PTCARENOTE ---
AM labs sent. pt repositioning self in bed. RUE midline placed by VAT overnight. call adam within reach, care ongoing. bed alarm remains on.
--- NOTE | 2023-08-25 07:08 | W.PN.INTV ---
Today's Communication / Plan
Recommendations
Doing better, can start to taper phenobarb dosing
Continue MSAS
Tolerating diet, encouraged OOB
Thiamine/folate continued
Psych on board
Can transfer to floors at this time, we will sign off upon transfer
Assessment
-
Patient is a 48-year-old male with previous history of chronic alcohol abuse, presenting to ER following being found down on floor today, incontinent of urine. He has visible tremors on arrival with nausea. Had been sober for 10 years, started
binge drinking in the past 10 days, 'gallons' of liquor/wine/beer, which was continuous. Last drink was 12 hours prior to presentation. May have had a seizure, patient does not recall. +AH/VH
He is admitted to ICU for acute alcohol intoxication with concerns for withdrawal, placed on phenobarbital taper.
Acute alcohol intoxication
Acute alcohol withdrawal
DTs
Mild leukocytosis
Mild hyponatremia
Metabolic acidosis
Lactic acidosis
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
Chronic alcohol abuse
Plan
ETOH w/d, high risk
DTs likely with +AH/VH
Binge drinking last 10 days, 'gallons'
Denies pain at this time.
Pain/sedation: Phenobarb + MSAS, can start to taper phenobarb
Psych eval
RASS goals: 0
Hemodynamically stable, not requiring pressors.
Cardiac history reviewed--none
No prior ECHO for review
Monitor on telemetry
Oxygen needs: stable on RA
Prior history of lung disease: none/nonsmoker
Supplemental O2 as indicated to maintain sats > 89%
CXR/CT reviewed indicating small R infiltrate possibly, but otherwise no acute findings
Advance diet as tolerated
Intrusion Analyst recommendations
Aspiration precautions, HOB > 30 degrees
Speech therapy eval can be considered if at elevated risk
GI prophylaxis if indicated
Creat at baseline, no history of renal disease
Void trials
Follow urine output, critical I/Os
Replete electrolytes as needed
No signs/symptoms suspicious for infectious etiology at this time
Observe off antibiotics for now
Follow fever trend, WBC count
CBC stable, no signs of bleeding or coagulopathy.
DVT prophylaxis as assessed based on risk, including mechanical SCDs
Can transfuse if indicated for Hb <7, plt < 10
INR WNL
No prior h/o diabetes or thyroid disease
Monitor accuchecks PRN/SS coverage if needed
Diagnostic Data
Chest X-Ray: 08/23/23, possible small R infiltrate, elevated RHD
CT Scan:
Echo:
PFT's:
Reports and relevant images were personally reviewed.
-----
Critical care time 35 mins -- this includes review of history, physical exam, medications, hemodynamic/ventilator parameters, laboratory data, imaging and discussion with house staff, pharmacy, respiratory therapy, blow mold technician, and nursing.
Subjective Dataa
Subjective Data
Date of Service:
Date of Service: August 25, 2023
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
Subjective:
doing well with withdrawal
less ativan use overnight
less hallucinations/tremors are noted
Objective Data
Data Reviewed
Vital Signs / I&O / Oxygen:
Vital Signs
Temp Pulse Resp BP Pulse Ox
98.8 F 67 14 96/64 93
08/25/23 03:54 08/25/23 06:00 08/25/23 06:00 08/25/23 06:00 08/25/23 06:03
Intake and Output
08/24/23 08/25/23 08/26/23
06:59 06:59 06:59
Intake Total 4270 / 4350 2040 / 2040
Output Total 800 / 1700 2200 / 2200
Balance 3470 / 2650 -160 / -160
SaO2 93
Physical Exam
General: Good Appetite and Other (anxious)
HEENT: Normocephalic, Anicteric and Moist Mucous Membranes
Cardiovascular: S1-S2 and Regular Rhythm
Respiratory: Clear and Non-Labored Respirations
GI: Soft, Non Distended and Non Tender
Neurology: Awake, Alert, Oriented, AO x 3, No Motor Deficits, Tremors and Other (+AH/VH)
Skin: Warm and Dry
Labs/Micro/Reports
Lab Data
08/25/23 04:14
08/25/23 04:14
[2023-08-25] MEDS: PROZAC 20 MG PO (08:20)
[2023-08-25] MEDS: LUMINAL 64.7999999999999972 MG PO ×3 (08:20→21:23)
[2023-08-25] MEDS: THERAGRAN 1 TABLET PO (08:20)
[2023-08-25] MEDS: FOLVITE 1 MG PO (08:20)
[2023-08-25] MEDS: THIAMINE INJECTION 200 MG IV (08:21)
[2023-08-25] MEDS: NEURONTIN 300 MG PO ×3 (08:21→21:26)
--- NOTE | 2023-08-25 09:22 | PTCARENOTE ---
rec'd patient. MSAS 2. pt oriented x3. SR on monitor. afebrile. on RA, denies SOB. reg diet, urinal at bedside. ML IV WNL. pt educated to use call adam when he feel he needs to urinate rather than get out of bed for safety reasons. bed alarm on.
call adam within reach, care ongoing.
--- NOTE | 2023-08-25 11:07 | W.PN.UPDATE ---
Update Note
Progress Note Update
patient seen chart reviewed. spoke with case mgt. the patient reports not feeling very well. still feels 'not lucid' although strictly speaking he did not appear to be in any type of delirium. he is using less ativan....received nine mg yesterday
as per amsas two mg so far today but the day is still young. vital signs are on the low side. i wondered if we may be oversedating him. discussed w pharmacy. he did receive several 2 mg doses of ativan yesterday. he is on phenobarb taper. . he
is accepting of in patient rehab which is a good choice for him. cm investigating [facility] or [facility]. will continue to follow
[2023-08-25] MEDS: ATIVAN 1 MG PO ×2 (11:57→16:15)
--- NOTE | 2023-08-25 12:57 | W.PN.HOSP.TC ---
Today's Communication/Plan
-
transfer OOICU
CM consult, hopefully inpt Eto[facility] rehab
Assessment / Plan
Assessment / Plan
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 Episode of seizure, found himself on floor covered in urine. Does not know how long unconscious. Was very tremulous, markedly decreased, as per
nursing, has been eating well
BMP with evidence of acidosis on admission
markedly improved. Lactic Acid 5.1-->1.0
CO2 13-->23-->24
Elevated Bilirubin
3.6-->4.2-->2.1-->1.2, with nl AST/ALT
Direct Bili 0.2
P: admit to ICU post seizure
Psych and Supervisor Electronics Assembly consult were ordered
full code
Heparin for DVT prophylaxis
doing better, will transfer to tele
Anticipated Discharge: 24 - 48 hours
Subjective/Interval History
-
Date of Service: August 25, 2023
Looks much better, more awake and conversant
Objective Data
-
Labs:
Laboratory Results
08/25/23
04:14
WBC 5.8
Hgb 13.1
Hct 36.9 L
Plt Count 236
Sodium 136
Potassium 3.8
Chloride 104
Carbon Dioxide 26
BUN 16
Creatinine 0.8
Glucose 103 H
Calcium 8.8
Total Bilirubin 1.2
AST 23
ALT 16
Alkaline Phosphatase 71
Vital Signs:
Vital Signs
Temp Pulse Resp BP Pulse Ox
98.2 F 71 19 103/59 95
08/25/23 07:36 08/25/23 12:00 08/25/23 12:00 08/25/23 12:00 08/25/23 08:00
I&O
08/24/23 08/25/23 08/26/23
06:59 06:59 06:59
Intake Total 4270 / 4350 2039
Output Total 800 / 1700 0 / 2200
Balance 3470 / 2650 -160 / -160
Review of Systems
-
History Source: Patient and Coordinated Provider
Constitutional: Denies Fever
Respiratory: Reports No Symptoms
Cardiac: Reports No Symptoms
Abdomen/GI: Reports No Symptoms
Genitourinary: Reports No Symptoms
Neuro: Reports Tremors
Physical Exam
-
General: Well Developed, Well Nourished and No Apparent Distress
HEENT: Normocephalic, Atraumatic and Moist Mucous Membranes
Respiratory: Clear to Auscultation; Negative Wheezes, Rales or Rhonchi
Cardiac: Regular Rhythm and S1/S2
GI: Nontender and Nondistended
Musculoskeletal: No Clubbing, No Cyanosis and No Edema
Neuro: Awake, Alert, Oriented and Tremors (may have decreased)
Psych: Calm; Negative Confused
[2023-08-25] MEDS: NSS (PRESERVATIVE FREE) 0.5 ML IV (13:37)
--- NOTE | 2023-08-25 13:50 | CM ---
CM following re: discharge planning.
Discussed in rounds, reviewed pt's chart, met with pt. Per Rounds, continue supportive care. Psychiatry and [facility] following.
CM spoke to [facility] Shashi and he stated he spoke to [facility], they accept [place] Medicaid and they will accept the pt for admission when pt is medically stable.
D/C plan: [facility] D&A rehab when medically stable.
CM will follow with discharge plan updates as hospitalization progresses
--- NOTE | 2023-08-25 14:54 | PTCARENOTE ---
Report given to 4W. Pt assisted to wheelchair and escorted to [id number] without issue.
[2023-08-25] MEDS: LOVENOX 40 MG SC (16:14)
[2023-08-25] MEDS: VITAMIN B1 100 MG PO (21:23)
[2023-08-26 03:00] VITALS: BP 100/63
[2023-08-26 05:22] LABS: % Basophils 0.2 % (0-2); % Eosinophils 6.9 % (0-6); % Immature Granulocytes 0.7 % (0-0.5); % Lymphocytes 31.7 % (20.5-51.1); % Neutrophils 47.5 % (42.2-75.2); Absolute Eosinophils 0.4 10^3/uL (0-0.7); Absolute Lymphocytes 1.8 10^3/uL (1.2-3.4); Absolute Monocytes 0.7 10^3/uL (0.1-0.6); Absolute Neutrophils 2.7 10^3/uL (1.4-6.5); Hematocrit 40.1 % (39.0-52.0); Hemoglobin 13.6 g/dL (13.0-18.0); Mean Corp Hgb Conc. 33.9 g/dL (33.0-37.0); Mean Corpuscular Hgb 29.8 pg (27.0-31.0); Mean Corpuscular Volume 87.9 fL (80.0-94.0); Mean Platelet Volume 8.9 fL (7.4-10.4); Nucleated Red Blood Cells % 0 % (-); Platelet Count 243 10^3/uL (130-400); Red Blood Cell Count 4.56 10^6/uL (4.70-6.10); White Blood Cell Count 5.6 10^3/uL (4.8-10.8)
[2023-08-26 05:52] LABS: ALT (SGPT) 26 U/L (0-50); AST (SGOT) 36 U/L (17-59); Albumin 3.7 g/dl (3.5-5.0); Alkaline Phosphatase 76 U/L (38-126); Blood Urea Nitrogen 17 mg/dl (9-20); Calcium 9.1 mg/dl (8.4-10.2); Carbon Dioxide 27 mmol/L (22-30); Chloride 103 mmol/L (98-107); Estimated Creatinine Clearance > 125 ml/min; Glucose 93 mg/dl (70-99); Potassium 3.9 mmol/L (3.5-5.1); Sodium 136 mmol/L (135-145); Total Bilirubin 0.8 mg/dl (0.2-1.3); Total Protein 6.4 g/dl (6.3-8.2); eGFR > 60.00
[2023-08-26 07:00] VITALS: BP 107/55
[2023-08-26] MEDS: PROZAC 20 MG PO (07:51)
[2023-08-26] MEDS: THERAGRAN 1 TABLET PO (07:51)
[2023-08-26] MEDS: NEURONTIN 300 MG PO ×3 (07:51→21:00)
[2023-08-26] MEDS: FOLVITE 1 MG PO (07:51)
[2023-08-26] MEDS: VITAMIN B1 100 MG PO ×2 (07:52→20:55)
[2023-08-26] MEDS: LUMINAL 64.7999999999999972 MG PO ×2 (07:52→17:22)
[2023-08-26 11:11] VITALS: BP 112/63
--- NOTE | 2023-08-26 11:51 | W.PN.UPDATE ---
Update Note
Progress Note Update
patient seen chart reviewed discussed w nursing and cm. the patient still looks very lethargic and sickly. his msas scores have been quite low but he was rather tremulous when i saw him. he is still committed to a dual dx unit which is appropriate
for him. perhaps what i am seeing in his demeanor is depression rather than the sx of withdrawal (except for the tremor which is secondary to etoh wd.) would continue w meds as they are for now. he would like [facility] dual dx which i
communicated to cm. i am dcing the josefina prn as he is still on the msas ativan protocol.
[2023-08-26 15:00] VITALS: BP 112/77
--- NOTE | 2023-08-26 15:27 | CM ---
Patient seen at bedside. Patient states he does not feel well, confirmed plan remains to work with [facility] for placement at [facility] or [facility]. CM will continue to follow for discharge planning needs.
PLan; work with [facility] about placement.
--- NOTE | 2023-08-26 16:42 | W.PN.HOSP.TC ---
Today's Communication/Plan
-
continue current Tx
Assessment / Plan
Assessment / Plan
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 Episode of seizure, found himself on floor covered in urine. Does not know how long unconscious. Was very tremulous, markedly decreased, as per
nursing, has been eating well
BMP with evidence of acidosis on admission
markedly improved. Lactic Acid 5.1-->1.0
CO2 13-->23-->24
Elevated Bilirubin
3.6-->4.2-->2.1-->1.2-->0.8, with nl AST/ALT
Direct Bili 0.2
P: Pt has been transferred OOICU
Psych input appreciated. Pt relates that he would prefer to go to the [facility] and I think this would be appropriate
full code
Heparin for DVT prophylaxis
doing better, but still demonstrates a very flat affect and remains tremulous. Not ready for dc
Anticipated Discharge: > 48 hours
Subjective/Interval History
-
Date of Service: August 26, 2023
Looks better, less shaky, but not fully resolved
Objective Data
-
Labs:
Laboratory Results
08/26/23
04:58
WBC 5.6
Hgb 13.6
Hct 40.1
Plt Count 243
Sodium 136
Potassium 3.9
Chloride 103
Carbon Dioxide 27
BUN 17
Creatinine 0.8
Glucose 93
Calcium 9.1
Total Bilirubin 0.8
AST 36
ALT 26
Alkaline Phosphatase 76
Vital Signs:
Vital Signs
Temp Pulse Resp BP Pulse Ox
98.1 F 93 18 112/77 96
08/26/23 15:00 08/26/23 15:00 08/26/23 15:00 08/26/23 15:00 08/26/23 15:00
I&O
08/25/23 08/26/23 08/27/23
06:59 06:59 06:59
Intake Total 2039 / 2039 600 / 600
Output Total 2199 / 2199
Balance -160 / -160 600 / 600
Review of Systems
-
History Source: Patient and Coordinated Provider
Constitutional: Denies Fever
Respiratory: Reports No Symptoms
Cardiac: Reports No Symptoms
Abdomen/GI: Reports No Symptoms
Genitourinary: Reports No Symptoms
Neuro: Reports Tremors
Physical Exam
-
General: Well Developed, Well Nourished and No Apparent Distress
HEENT: Normocephalic, Atraumatic and Moist Mucous Membranes
Respiratory: Clear to Auscultation; Negative Wheezes, Rales or Rhonchi
Cardiac: Regular Rhythm and S1/S2
GI: Nontender and Nondistended
Musculoskeletal: No Clubbing, No Cyanosis and No Edema
Neuro: Awake, Alert, Oriented and Tremors ( decreased not resolved)
Psych: Calm; Negative Confused
[2023-08-26] MEDS: LOVENOX 40 MG SC (17:21)
[2023-08-26] MEDS: KLONOPIN 0.5 MG PO (18:19)
[2023-08-26 19:55] VITALS: BP 104/65
[2023-08-26] MEDS: LUMINAL 32.3999999999999986 MG PO (21:00)
[2023-08-26 23:42] VITALS: BP 104/63
[2023-08-27] VITALS (7 sets, daily range): BP systolic 106–133; BP diastolic 65–84
[2023-08-27] MEDS: THERAGRAN 1 TABLET PO (08:17)
[2023-08-27] MEDS: LUMINAL 32.3999999999999986 MG PO ×3 (08:17→21:21)
[2023-08-27] MEDS: PROZAC 20 MG PO (08:17)
[2023-08-27] MEDS: NEURONTIN 300 MG PO ×3 (08:17→21:21)
[2023-08-27] MEDS: VITAMIN B1 100 MG PO ×2 (08:17→20:18)
[2023-08-27] MEDS: FOLVITE 1 MG PO (08:23)
[2023-08-27] MEDS: ATIVAN 1 MG PO ×3 (08:40→20:18)
--- NOTE | 2023-08-27 10:02 | PTCARENOTE ---
DR Cr aware that pt states he is continuing to have hallucinations ( he's talking to people in the room, feels like he's in a movie).Made him aware of pt's concerns that he is not receiving his medication the way he takes it at home. He is
getting 20mg of Prozac but takes 30mg at home. Also his Klonopin is ordered prn and he takes it 3 times a day scheduled. Psychatrist reproduction production manager was on unit and Dr Cr spoke with him about the medications. He will discuss with pt when he sees him.
--- NOTE | 2023-08-27 11:31 | W.PN.UPDATE ---
Update Note
Progress Note Update
Patient reports he feels lack of energy, poor motivation, dysphoria even if not drinking. Feels he tends to self medicate with alcohol. He denies active suicidal thoughts but at times has passive ones; it would not bother him if he by natural
.
Agreeable to go to [facility].
He states the medication that helped most for depression was Prozac and Klonopin; he was taking 30 mg of Prozac and 0.5 tid of Klonopin.
I will increase the Prozac to 30 but would leave the Klonopin as prn only as regular benzodiazepine in patients with ANASTASIA is generally not a good idea and likely will not be allowed in rehab facility.
Will F/U.
[2023-08-27] MEDS: KLONOPIN 0.5 MG PO ×2 (12:13→22:39)
--- NOTE | 2023-08-27 12:51 | W.PN.HOSP.TC ---
Today's Communication/Plan
-
Doing better, await completing arrangements to go to inpt Etoh rehab
Assessment / Plan
Assessment / Plan
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 Episode of seizure, found himself on floor covered in urine. Does not know how long unconscious. Was very tremulous, markedly decreased, as per
nursing, has been eating well.
Situation reviewed with Dr. Philippe
Pt will complete Phenobarb 32.4 mg tid 16:01 on 08/27.
BMP with evidence of acidosis on admission
markedly improved. Lactic Acid 5.1-->1.0
CO2 13-->23-->24
Elevated Bilirubin
3.6-->4.2-->2.1-->1.2-->0.8, with nl AST/ALT
Direct Bili 0.2
P: Pt has been transferred OOICU
Psych input appreciated. Pt relates that he would prefer to go to the [facility] and I think this would be appropriate
full code
Heparin for DVT prophylaxis
doing better, but still demonstrates a very flat affect and remains tremulous. Hopefully arrangements can be completed for inpt care at [facility] in next 1-2 days, appears stable for dc once arrangements completed
Anticipated Discharge: 24 - 48 hours
Subjective/Interval History
-
Date of Service: August 27, 2023
Conversant, still feels shaky
Objective Data
-
Vital Signs:
Vital Signs
Temp Pulse Resp BP Pulse Ox
98 F 79 18 132/82 96
08/27/23 11:55 08/27/23 11:55 08/27/23 11:55 08/27/23 11:55 08/27/23 11:55
I&O
08/26/23 08/27/23 08/28/23
06:59 06:59 06:59
Intake Total 600 / 600 1080 / 1080
Balance 600 / 600 1080 / 1080
Review of Systems
-
History Source: Patient and Coordinated Provider
Constitutional: Denies Fever
Respiratory: Reports No Symptoms
Cardiac: Reports No Symptoms
Abdomen/GI: Reports No Symptoms
Genitourinary: Reports No Symptoms
Neuro: Reports Tremors
Physical Exam
-
General: Well Developed, Well Nourished and No Apparent Distress
HEENT: Normocephalic, Atraumatic and Moist Mucous Membranes
Respiratory: Clear to Auscultation; Negative Wheezes, Rales or Rhonchi
Cardiac: Regular Rhythm and S1/S2
GI: Nontender and Nondistended
Musculoskeletal: No Clubbing, No Cyanosis and No Edema
Neuro: Awake, Alert, Oriented and Tremors ( decreased not resolved)
Psych: Calm; Negative Confused
[2023-08-27] MEDS: ZOFRAN 4 MG IV ×2 (16:25→22:39)
[2023-08-27] MEDS: LOVENOX 40 MG SC (17:49)
[2023-08-28 03:00] VITALS: BP 98/65
[2023-08-28 07:50] VITALS: BP 116/83
[2023-08-28] MEDS: VITAMIN B1 100 MG PO ×2 (08:02→19:28)
[2023-08-28] MEDS: LUMINAL 32.3999999999999986 MG PO ×2 (08:02→16:08)
[2023-08-28] MEDS: FOLVITE 1 MG PO (08:02)
[2023-08-28] MEDS: THERAGRAN 1 TABLET PO (08:02)
[2023-08-28] MEDS: NEURONTIN 300 MG PO ×3 (08:02→21:29)
[2023-08-28] MEDS: PROZAC 30 MG PO (08:02)
[2023-08-28] MEDS: KLONOPIN 0.5 MG PO ×2 (08:11→21:29)
[2023-08-28] MEDS: ZOFRAN 4 MG IV ×2 (09:46→16:11)
[2023-08-28] MEDS: ATIVAN 1 MG PO ×3 (10:10→19:28)
[2023-08-28 12:00] VITALS: BP 127/84
--- NOTE | 2023-08-28 12:34 | W.PN.UPDATE ---
Update Note
Progress Note Update
Patient was still reporting hearing music and seeing someone in his room cleaning at 4AM. He also told me he was seeing a movie Pulp Fiction in his mind from beginning to the end. Apparently he had similar withdrawal symptoms after his last binge
which lasted beyond the usual 5 days after last drink.
Additionally he reports hypomanic like symptoms even when sober; he was previously on Al[place] and Seroquel without improvement.
At this point we have to consider BP. He is still agreeable to going into rehab where he should be also followed up by a psychiatrist, possible mood stabilizer should be considered if symptoms persist.
[2023-08-28] MEDS: ATIVAN 1 MG IV (13:10)
[2023-08-28] MEDS: NSS (PRESERVATIVE FREE) 0.5 ML IV (13:11)
--- NOTE | 2023-08-28 15:46 | CHAP ---
Extended visit with Mr. Segundo, who has a strong spirit and is a man of halina. Emotional and spiritual support provided.
[2023-08-28 15:50] VITALS: BP 128/87
--- NOTE | 2023-08-28 16:25 | W.PN.HOSP.TC ---
Today's Communication/Plan
-
potential dc to inpt rehab in near future
Assessment / Plan
Assessment / Plan
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
Pt states was abstinent for 10 years, due to life stresses started to binge drink 10 days TAFE LECTURER. Episode of seizure, found himself on floor covered in urine. Does not know how long unconscious. Was very tremulous, markedly decreased, as per
nursing, has been eating well.
Situation reviewed with Dr. Philippe
Pt completed Phenobarb 32.4 mg tid 16:01 on 08/27.
He does appear significantly better. Hopefully able to make arrangements to transfer to [facility] next 1-2 days. Still with significant hallucinations and tremor
BMP with evidence of acidosis on admission
markedly improved. Lactic Acid 5.1-->1.0
CO2 13-->23-->24
Elevated Bilirubin
3.6-->4.2-->2.1-->1.2-->0.8, with nl AST/ALT
Direct Bili 0.2
P: Pt has been transferred OOICU
Psych input appreciated. Pt relates that he would prefer to go to the [facility] and I think this would be appropriate
full code
Heparin for DVT prophylaxis
Anticipated Discharge: 24 - 48 hours
Subjective/Interval History
-
Date of Service: August 28, 2023
Still with tremors, but alert and conversant
Objective Data
-
Vital Signs:
Vital Signs
Temp Pulse Resp BP Pulse Ox
97.9 F 79 17 128/87 96
08/28/23 15:50 08/28/23 15:50 08/28/23 15:50 08/28/23 15:50 08/28/23 15:50
I&O
08/27/23 08/28/23 08/29/23
06:59 06:59 06:59
Intake Total 1080 / 1080 2460 / 246
Balance 1080 / 1080 0 / 246
Review of Systems
-
History Source: Patient and Coordinated Provider
Constitutional: Denies Fever
Respiratory: Reports No Symptoms
Cardiac: Reports No Symptoms
Abdomen/GI: Reports No Symptoms
Genitourinary: Reports No Symptoms
Neuro: Reports Tremors
Physical Exam
-
General: Well Developed, Well Nourished and No Apparent Distress
HEENT: Normocephalic, Atraumatic and Moist Mucous Membranes
Respiratory: Clear to Auscultation; Negative Wheezes, Rales or Rhonchi
Cardiac: Regular Rhythm and S1/S2
GI: Nontender and Nondistended
Musculoskeletal: No Clubbing, No Cyanosis and No Edema
Neuro: Awake, Alert, Oriented and Tremors ( decreased not resolved)
Psych: Calm; Negative Confused
[2023-08-28] MEDS: LOVENOX 40 MG SC (17:51)
[2023-08-28 19:24] VITALS: BP 131/81
[2023-08-28 23:42] VITALS: BP 135/91
[2023-08-29 03:01] VITALS: BP 102/65
[2023-08-29] MEDS: ATIVAN 1 MG IV ×8 (03:09→22:37)
[2023-08-29] MEDS: ATIVAN 1 MG PO ×2 (05:14→09:36)
[2023-08-29 07:19] VITALS: BP 119/73
[2023-08-29] MEDS: NEURONTIN 300 MG PO ×3 (09:04→21:09)
[2023-08-29] MEDS: THERAGRAN 1 TABLET PO (09:04)
[2023-08-29] MEDS: PROZAC 30 MG PO (09:05)
[2023-08-29] MEDS: FOLVITE 1 MG PO (09:05)
[2023-08-29] MEDS: VITAMIN B1 100 MG PO ×2 (09:08→19:56)
[2023-08-29] MEDS: ZOFRAN 4 MG IV (09:39)
[2023-08-29] MEDS: FLUSH (NSS) 2 FLUSH IV ×3 (09:42→18:14)
--- NOTE | 2023-08-29 10:34 | W.PN.UPDATE ---
Update Note
Progress Note Update
Patient is still having significant tremor despite having stopped drinking now for 7 days. She states however he always has extended period of withdrawal following a binge. Of concern is that he reports florid auditory and visual hallucinations
particularly at night, eithe seeing movies of hearing music. Last night he saw his long grandfather sitting by his bed.
Will try Latuda 20 hs to see if it helps with the psychotic symptoms and insomnia. He does have history of hypomania and is showing such symptoms presently.
Will continue F/U.
[2023-08-29 11:00] VITALS: BP 126/67
--- NOTE | 2023-08-29 11:15 | PTCARENOTE ---
Patient ambulating independently in hallway with steady gait.
[2023-08-29] MEDS: NSS (PRESERVATIVE FREE) 0.5 ML IV ×2 (11:41→18:14)
--- NOTE | 2023-08-29 12:36 | PTCARENOTE ---
Telemetry monitoring continued per protocol for significant change in clinical status of increase in MSAS score.
[2023-08-29] MEDS: NSS (PRESERVATIVE FREE) 0.900000000000000022 ML IV (14:25)
[2023-08-29 14:30] VITALS: BP 102/67
--- NOTE | 2023-08-29 16:27 | W.PN.HOSP.TC ---
Addendum entered and electronically signed by Robe Huggins MD 08/29/23 22:15:
Attending Addendum-
I saw and evaluated the patient. I reviewed the resident�s note and agree with findings and plan as documented in the resident�s note. Sub: contionue to have auditory and visual hallucinations. states tremors are improved but still present. Feels
nausea intermittently no vomiting. Full 12 point ROS reviewed and negative except as documented Exam: Vitals reviewed in chart GEN-NAD mild tremulousness heart tachycardic regular rhythm abd soft LE no edema Neuro intention tremor nystagmus on
lateral gaze Plan-
# ETOH Withdrawal/Delirium Tremens
- cont MSAS protocol with ativan
- improving scores
- unable to switch to phenobarb due to Latuda interaction
- for IP rehab on DC
- keep medical info confidential
- cont gabapentin
- cont MVI/thiamine/folate
# Possible Bipolar II
- start latuda today
- appreciate psych input
- monitor closely for response
- cont prozac for now
# Acidosis
- resolved
- repeat BMP in am
Dispo- states that he would prefer to go to the [facility]
full code
Heparin for DVT prophylaxis
Time spent coordinating care, review of plan of care with resident, personally reviewed records in EMR, med rec, consults, notes, labs, radiology, d/w nursing � 55 mins
Original Note:
Today's Communication/Plan
-
Started antipsychotic for audio and visual hallucinations.
Assessment / Plan
Assessment / Plan
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 Episode of seizure, found himself on floor covered in urine. Does not know how long unconscious. Was very tremulous, markedly decreased, as per
nursing, has been eating well.
Situation reviewed with Dr. Philippe
Pt completed Phenobarb 32.4 mg tid 16:01 on 6/30.
He does appear significantly better. Hopefully able to make arrangements to transfer to [facility] next 1-2 days. Still with significant hallucinations both auditory and visual. As well as tremor.
Psych saw him and recommended starting Latuda for the audio and visual hallucinations. Will continue to monitor his response over the next few days on this medication. There is concern for potential BP disorder patient has a psychiatrist to follow
outpatient.
Patient was complaining of nausea we informed the patient that he has Zofran as needed ordered and to ask his nurse.
BMP with evidence of acidosis on admission
markedly improved. Lactic Acid 5.1-->1.0
CO2 13-->23-->24
Elevated Bilirubin
3.6-->4.2-->2.1-->1.2-->0.8, with nl AST/ALT
Direct Bili 0.2
P: Pt has been transferred OOICU
Psych input appreciated. Pt relates that he would prefer to go to the [facility] and I think this would be appropriate
full code
Heparin for DVT prophylaxis
Anticipated Discharge: > 48 hours
Subjective/Interval History
-
Date of Service: August 29, 2023
MSAS 6 this morning per nurse. Audio and visual hallucinations continue overnight
Objective Data
-
Vital Signs:
Vital Signs
Temp Pulse Resp BP Pulse Ox
97.5 F 87 19 126/67 98
08/29/23 11:00 08/29/23 11:00 08/29/23 11:00 08/29/23 11:00 08/29/23 11:00
I&O
08/28/23 08/29/23 08/30/23
06:59 06:59 06:59
Intake Total 2460 / 2460 1040 / 1040
Balance 2460 / 2460 1040 / 1040
Review of Systems
-
History Source: Patient
Constitutional: Reports Sleep Disturbance; Denies Fever
Respiratory: Denies Trouble Breathing
Cardiac: Reports No Symptoms
Abdomen/GI: Reports Nausea; Denies Vomiting
Genitourinary: Reports No Symptoms
Musculoskeletal: Reports No Symptoms
Endocrine: Reports No Symptoms
Physical Exam
-
General: Well Developed
Respiratory: Clear to Auscultation
Cardiac: Regular Rhythm and S1/S2
GI: Soft, Nontender and Normal Bowel Sounds
Musculoskeletal: No Edema
Skin: Warm
Neuro: AO x 3 and Tremors
Psych: Intact Judgement/Insight
Data Reviewed
-
Labs: Labs Reviewed by me and Discussed with Physician
[2023-08-29] MEDS: LOVENOX 40 MG SC (18:05)
[2023-08-29 19:10] VITALS: BP 116/74
[2023-08-29] MEDS: SENOKOT-S 1 TABLET PO (19:55)
[2023-08-29] MEDS: KLONOPIN 0.5 MG PO (21:09)
[2023-08-29] MEDS: LATUDA 20 MG PO (21:09)
[2023-08-29 23:22] VITALS: BP 110/76
[2023-08-30] MEDS: ATIVAN 1 MG PO (01:09)
--- NOTE | 2023-08-30 07:15 | PTCARENOTE ---
Patient currently asleep in bed (did not arouse to knock on door or voice) laying on left side with even and unlabored respirations. Call adam in reach. 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
[2023-08-30 07:25] VITALS: BP 101/59
--- NOTE | 2023-08-30 09:15 | PTCARENOTE ---
Patient currently ambulating in hallway with steady independent gait. Patient is pleasant and verbalizes 'Good morning' to this nurse.
--- NOTE | 2023-08-30 09:46 | CM ---
LATE NOTE FROM 08/29/2023:
BEST spoke with Chevy at [facility] ([phone]) who will coordinate transfer to IP alcohol rehab at [facility]. Call Chevy when when patient is ready for discharge.
Plan: Transfer to [facility] when medically ready.
--- NOTE | 2023-08-30 09:48 | W.PN.HOSP.TC ---
Addendum entered and electronically signed by Robe Huggins MD 08/30/23 22:04:
Attending Addendum-
I saw and evaluated the patient. I reviewed the resident�s note and agree with findings and plan as documented in the resident�s note. Sub: states he is continuing to have auditory and visual hallucinations. complains of tremors. smoking vape on
entry to room. Tolerating diet. Full 12 point ROS reviewed and negative except as documented Exam: Vitals reviewed in chart GEN-NAD mild tremulousness but distractable heart RRR abd soft LE no edema Neuro AAO x 3 Plan-
# ETOH Withdrawal/Delirium Tremens/AUD
- DC MSAS protocol as patient exhibiting signs of tolerance/dependence
- improving scores
- unable to switch to phenobarb due to Latuda interaction
- for IP rehab on DC if able
- keep medical info confidential
- cont gabapentin
- cont MVI/thiamine/folate
# Possible Bipolar II
- cont latuda
- appreciate psych input
- monitor closely for response
- cont prozac
# Acidosis
- resolved
- repeat BMP in am
Dispo- states that he would prefer to go to the [facility] or [place] but insurance termed
full code
Heparin for DVT prophylaxis
Dispo DC home with support likely advised to attend AA
Time spent coordinating care, review of plan of care with resident, personally reviewed records in EMR, med rec, consults, notes, labs, radiology, d/w nursing psych at great length re plan and CM � 52 mins
Original Note:
Today's Communication/Plan
-
Tolerating Latuda with tiredness social work was consulted to find placement in a rehab facility.
Assessment / Plan
Assessment / Plan
#Alcohol withdrawal
Today appears significantly better. Hopefully able to make arrangements to transfer to [facility] next 1-2 days. Still with significant hallucinations both auditory and visual. As well as tremor. Patient reports these are the same as the
previous day.
Psych saw him and recommended starting Latuda for the audio and visual hallucinations. Patient is tolerating the medicine currently although he reports significant increase in tiredness and no change in his hallucinations. There is concern for
potential BP disorder. Patient has a psychiatrist to follow outpatient, he follows [facility] for psychiatry, he is unsure of his doctor.
Psychiatry saw the patient today and there is concern that he may be malingering. MSAS protocol was discontinued today. Folate and thiamine were continued. Patient states today that he would like to be discharged to a rehab facility as soon as
possible. Social work was contacted and we were told that there is an insurance issue related to his transfer to a rehab facility. Social work will revisit the patient in the morning to discuss further.
full code
Heparin for DVT prophylaxis
Anticipated Discharge: Within 24 hours
Subjective/Interval History
-
Date of Service: August 30, 2023
Patient reports tiredness overnight possibly due to new Latuda.
Objective Data
-
Labs:
Laboratory Results
08/30/23
06:00
WBC Pending
Hgb Pending
Hct Pending
Plt Count Pending
Sodium Pending
Potassium Pending
Chloride Pending
Carbon Dioxide Pending
BUN Pending
Creatinine Pending
Glucose Pending
Calcium Pending
Total Bilirubin Pending
AST Pending
ALT Pending
Alkaline Phosphatase Pending
Vital Signs:
Vital Signs
Temp Pulse Resp BP Pulse Ox
97.6 F 82 17 101/59 100
08/30/23 07:25 08/30/23 07:25 08/30/23 07:25 08/30/23 07:25 08/30/23 07:25
I&O
08/29/23 08/30/23 08/31/23
06:59 06:59 06:59
Intake Total 1040 / 1040 1320 / 1320
Balance 1040 / 1040 132 / 1320
Review of Systems
-
History Source: Patient
Constitutional: Reports Sleep Disturbance
Respiratory: Reports No Symptoms
Cardiac: Reports No Symptoms
Abdomen/GI: Reports No Symptoms
Genitourinary: Reports No Symptoms
Musculoskeletal: Reports No Symptoms
Psych: Denies Depressed
Physical Exam
-
General: Well Developed, Well Nourished and No Apparent Distress
Respiratory: Clear to Auscultation
Cardiac: Regular Rhythm and S1/S2; Negative Murmur
Musculoskeletal: No Edema
Skin: Warm
Psych: Calm
Data Reviewed
-
Labs: Labs Reviewed by me and Discussed with Physician
[2023-08-30] MEDS: THERAGRAN 1 TABLET PO (10:05)
[2023-08-30] MEDS: NEURONTIN 300 MG PO ×3 (10:05→21:43)
[2023-08-30] MEDS: FOLVITE 1 MG PO (10:05)
[2023-08-30] MEDS: PROZAC 30 MG PO (10:05)
[2023-08-30] MEDS: VITAMIN B1 100 MG PO ×2 (10:09→19:51)
[2023-08-30] MEDS: FLUSH (NSS) 3 FLUSH IV (10:14)
[2023-08-30] MEDS: ATIVAN 1 MG IV (10:18)
[2023-08-30] MEDS: ZOFRAN 4 MG IV (10:18)
[2023-08-30] MEDS: NSS (PRESERVATIVE FREE) 0.5 ML IV (10:19)
[2023-08-30 11:07] LABS: % Basophils 0.7 % (0-2); % Eosinophils 11.3 % (0-6); % Immature Granulocytes 1.7 % (0-0.5); % Lymphocytes 26.1 % (20.5-51.1); % Monocytes 9.7 % (1.7-9.3); % Neutrophils 50.5 % (42.2-75.2); Absolute Basophils 0.1 10^3/uL (0-0.2); Absolute Eosinophils 0.9 10^3/uL (0-0.7); Absolute Immature Granulocytes 0.1 10^3/uL (0-0.05); Absolute Lymphocytes 2.1 10^3/uL (1.2-3.4); Absolute Monocytes 0.8 10^3/uL (0.1-0.6); Absolute Neutrophils 4.1 10^3/uL (1.4-6.5); Hematocrit 42.5 % (39.0-52.0); Hemoglobin 14.9 g/dL (13.0-18.0); Mean Corp Hgb Conc. 35.1 g/dL (33.0-37.0); Mean Corpuscular Hgb 29.9 pg (27.0-31.0); Mean Corpuscular Volume 85.3 fL (80.0-94.0); Nucleated Red Blood Cells % 0 % (-); Platelet Count 336 10^3/uL (130-400); Red Blood Cell Count 4.98 10^6/uL (4.70-6.10); Red Cell Dist. Width 12.2 % (11.5-14.5); White Blood Cell Count 8.1 10^3/uL (4.8-10.8)
[2023-08-30] MEDS: KLONOPIN 0.5 MG PO (11:21)
[2023-08-30 11:32] VITALS: BP 104/58
[2023-08-30 11:53] LABS: ALT (SGPT) 62 U/L (0-50); AST (SGOT) 35 U/L (17-59); Albumin 4.5 g/dl (3.5-5.0); Alkaline Phosphatase 86 U/L (38-126); Blood Urea Nitrogen 18 mg/dl (9-20); Calcium 9.7 mg/dl (8.4-10.2); Carbon Dioxide 25 mmol/L (22-30); Chloride 100 mmol/L (98-107); Estimated Creatinine Clearance 112 ml/min; Glucose 100 mg/dl (70-99); Sodium 135 mmol/L (135-145); Total Bilirubin 0.8 mg/dl (0.2-1.3); Total Protein 7.5 g/dl (6.3-8.2); eGFR > 60.00
--- NOTE | 2023-08-30 12:35 | W.PN.UPDATE ---
Update Note
Progress Note Update
patient seen chart reviewed. spoke with nursing. patient's vital signs are quite good w low bp. normal hr. afebrile. he is complaining of hallucinations and feels he is in the throes of severe etoh withdrawal which is not clear to. nursing tells
me they have been 'generous' with amsas scores but he has never been higher than a four . at this point he is on day nine of admission. he has completed phenobarb detox. will continue msas for now. dr sanchez placed him on latuda which is not
unreasonable for bipolar depression with or without hallucinations. cm is working on finding him a dual dx bed. 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
--- NOTE | 2023-08-30 15:32 | W.DCSUMMARY ---
Addendum entered and electronically signed by Robe Huggins MD 09/01/23 15:27:
Read reviewed and agree. See same day progress note for additional details.
Don Huggins MD
Original Note:
Documented by User: Rahul Bond DO, Resident 09/01/23 13:43
Discharge Summary
Discharge Data
Date of Admission: 08/22/23
Date of Discharge: 09/01/23
-
Pending Results: No
Hospital Course
Discharging Physician : Joseluis Bond
Disposition : Home
Primary care physician : unkown
Principal Discharge diagnosis : Alcohol withdrawal
Chronic Discharge diagnosis : BP type 2, acidosis
Hospital Course : Patient presented to the emergency department stating that he had been drinking heavily for the past 10 days after being clean for over 10 years. He felt himself on the floor incontinent of urine and was brought to the emergency
department for eval. In the emergency department he was noted to have visible tremors and complained of nausea. On 08/22 he had a chest x-ray portable which showed mild interstitial airspace disease at both lung bases. Patient complained of both
audio and visual hallucinations. Well as severe tremors. Patient was admitted and placed on a phenobarbital taper. He was also put on the M SAS protocol. During his stay his symptoms were treated with Ativan and Klonopin as well as phenobarbital
on occasion. Psychiatry saw him as an inpatient and thought he may have bipolar type II. Psychiatry started him on Latuda. Phenobarbital was discontinued after starting Latuda as there is a drug interaction. Patient will be discharged on Latuda
and follow-up with psychiatry as an outpatient. Originally patient wants to be discharged to a rehab facility. Patient was discontinued on MSAS protocol on day 9 of his admission. Previously MSAS scores were 'generous' and patient made multiple
attempts with multiple providers to ask for increased doses of controlled substances. Patient continued to vape in room even after being told multiple times not to. Patient was off of Ativan and phenobarbital for greater than 48 hours, but still
remained on home p.o. Klonopin. During that time the patient still endorses both audio and visual hallucinations however vital signs remained stable and he did not show signs of increasing withdrawal or potential seizures. During this time the
tremors were also noticed to subside with distraction, very likely supratentorial in etiology. These tremors decreased with distraction and increased during the length of the patient interview, they were not present in all limbs continuously.
Towards the end of his stay right before being discharged patient reports that audio and visual hallucinations have subsided. Patient says that he wants to be discharged home and if he cannot be discharged promptly he will leave AGAINST MEDICAL
ADVICE. He states that he lives with his family in [place] and will seek inpatient treatment on his own terms at a later time.
Important imaging findings : 08/23/2023 chest x-ray portable 1 view impression is as follows: There is mild linear interstitial airspace disease at both lung bases which may be subsegmental atelectasis or interstitial pneumonia.
Procedure findings : No procedures were performed
Discharge Plan
-
Patient Disposition: Home (Routine Discharge)
Discharge Diagnosis/Procedures: Alcohol withdrawal, acidosis
Diet: No restrictions
Activity: No restrictions
Driving Restrictions: As prior to admission
Bathing Restrictions: None
Referrals:
Naresh Whitt MD [Other]
UNKNOWN - PT DOES,NOT KNOW [Family Provider] -
Additional Discharge Medication Instructions: Take lurasidone 20 mg tablet by mouth every night
Prescriptions:
New
lurasidone 20 mg Tablet
20 mg PO HS Qty: 30 0RF
Continued
clonazepam 0.5 mg Tablet
0.5 mg PO BIDPRN PRN (Reason: anxiety)
lithium carbonate 450 mg Tablet Extended Release
900 mg PO HS
fluoxetine 10 mg Capsule
30 mg PO DAILY
gabapentin 400 mg Capsule
400 mg PO TID
Discharge Orders:
Discharge Patient (As Directed); Ordered 09/01/23
Ordered By: Rahul Bond
Discharge Date and Time
Discharge Date/Time: 09/01/23 11:33
Print Language: GUINEAN

Documented by User: Robe Huggins MD 09/01/23 15:24
Discharge Summary
Discharge Data
Date of Admission: 08/22/23
Date of Discharge: 09/01/23
Discharge Plan
-
Patient Disposition: Home (Routine Discharge)
Discharge Diagnosis/Procedures: Alcohol withdrawal, acidosis
Diet: No restrictions
Activity: No restrictions
Driving Restrictions: As prior to admission
Bathing Restrictions: None
Referrals:
Naresh Whitt MD [Other]
UNKNOWN - PT DOES,NOT KNOW [Family Provider] -
Additional Discharge Medication Instructions: Take lurasidone 20 mg tablet by mouth every night
Prescriptions:
New
lurasidone 20 mg Tablet
20 mg PO HS Qty: 30 0RF
Continued
clonazepam 0.5 mg Tablet
0.5 mg PO BIDPRN PRN (Reason: anxiety)
lithium carbonate 450 mg Tablet Extended Release
900 mg PO HS
fluoxetine 10 mg Capsule
30 mg PO DAILY
gabapentin 400 mg Capsule
400 mg PO TID
Discharge Orders:
Discharge Patient (As Directed); Ordered 09/01/23
Ordered By: Rahul Bond
Discharge Date and Time
Discharge Date/Time: 09/01/23 11:33
Print Language: GUINEAN
--- NOTE | 2023-08-30 15:37 | CM ---
Addendum entered by Geovanna Han 08/30/23 16:17:
TC from [facility], patient not accepted for inpatient.
Phone number for outpatient is [phone] option 2, will follow up in am.
Await [facility] recommendations.
Original Note:
Spoke with patient bedside.
He would like to go to the [facility].
Left VM for RALPH Reece. off today.
Spoke with [facility] admissions- [phone].
Per [facility] Shashi will be able to see patient after 4 pm.
TC to [facility] at [facility] [phone]- will fax clinicals [phone].
Asked patient for insurance information, patient said he is active with [place] Medicaid.
TC to Admission/Coco, she called [place] Medicaid and they said he was term'd as of 11/27/22.
Patient updated and asked him to contact [place] Medicaid if he thinks this is in error.
Shashi from [facility] spoke with patient and will be in to see early evening with resources.
CM will f/u in am.
Plan: inpatient vs home with outpatient resources.
[2023-08-30 15:48] VITALS: BP 130/66
[2023-08-30] MEDS: LOVENOX 40 MG SC (18:21)
[2023-08-30] MEDS: LATUDA 20 MG PO (21:43)
[2023-08-30 23:20] VITALS: BP 109/71
[2023-08-31 07:57] VITALS: BP 107/68
[2023-08-31] MEDS: NEURONTIN 300 MG PO ×3 (08:52→21:14)
[2023-08-31] MEDS: FOLVITE 1 MG PO (08:52)
[2023-08-31] MEDS: THERAGRAN 1 TABLET PO (08:52)
[2023-08-31] MEDS: VITAMIN B1 100 MG PO ×2 (08:52→21:14)
[2023-08-31] MEDS: PROZAC 30 MG PO (08:52)
--- NOTE | 2023-08-31 10:53 | CM ---
Addendum entered by Geovanna Han 08/31/23 15:04:
Await TCB from [facility]
Addendum entered by Geovanna Han 08/31/23 14:17:
Attempted dual treatment centers [place]
TC to [facility] in [place] [phone], they will not accept without insurance.
TC to [facility] they referred me to [facility] [phone]- no answer x 3
TC to [facility] - they are unable to accept without insurance.
Plan: TBD, continue bed search
Original Note:
Spoke with fredy/Coco, she again called [place] medicaid and patient is inactive.
Patient spoke with Shashi from [facility] last PM, additional resources provided.
Explained to patient [place] resources are available and ask if he needed additional resources.
Per patient he needs admission due to do psychiatric issues not ETOH.
Will ask [facility] to see patient again today to provide additional outpatient resources.
Patient will need to sign up for [place] medicaid again and he is aware.
Patient currently resides in [place] and plan is to return to [place].
Plan: inpatient vs home with community resources.
--- NOTE | 2023-08-31 12:08 | W.PN.UPDATE ---
Update Note
Progress Note Update
patient seen chart reviewed. spoke w nursing and cm. his vital signs remain stable and he appears more comfortable than yesterday . he is not complaining of shaking. msas has been dc'ed. he does say that latuda makes him very sleepy. latuda and
prozac do have an interaction where prozac can inc blood level of latuda and hence inc side effects. latuda is in itself a rx for bipolar depression. (patient was on lithium and unclear if this was being used to rx bipolar or depression add on.
dr sanchez felt patient may be bipolar. patient agrees w dc of prozac (it does not need tapering as it tapers itself given long half life and active metabolites) and will see if his sedation resolves. then can consider inc in latuda as he continues
to complain of hearing music (?) and dependent on his affective status. there is a snafu with getting him to rehab given his [place] residency and insurance. [facility] will talk w him today.
[2023-08-31 14:55] VITALS: BP 115/62
[2023-08-31] MEDS: KLONOPIN 0.5 MG PO ×2 (16:29→22:44)
[2023-08-31] MEDS: LOVENOX 40 MG SC (18:28)
--- NOTE | 2023-08-31 20:12 | W.PN.HOSP.TC ---
Addendum entered and electronically signed by Robe Huggins MD 08/31/23 22:02:
Attending Addendum-
I saw and evaluated the patient. I reviewed the resident�s note and agree with findings and plan as documented in the resident�s note. Sub: per nursing reporting auditory and visual hallucinations but patient doesnt mention it during our interview.
states tremors are still present. able to estefania po. Full 12 point ROS reviewed and negative except as documented Exam: Vitals reviewed in chart GEN-NAD heart regular rhythm abd soft LE no edema Neuro AAO x 3 seems more forced tremor Plan-
# ETOH Withdrawal/Delirium Tremens
- DC MSAS exhibiting signs of tolerance
- awaiting [facility]
- keep medical info confidential
- cont gabapentin
- cont MVI/thiamine/folate
- unfortunately unable unable to send to [place] due to insurance issues
- will provide supoort and DC home vs [facility] in am
- counselled re quitting and attending AA
# Possible Bipolar II
- cont latuda today
- appreciate psych input
- monitor closely for response
- cont prozac
# Acidosis
- resolved
Dispo- attempted to DC home today but patietn states he doesnt have a place to stay or a ride- unsafe to DC home today will set up in am d/w CM
full code
Heparin for DVT prophylaxis
Time spent coordinating care, review of plan of care with resident, personally reviewed records in EMR, med rec, consults, notes, labs, radiology, d/w nursing psych and CM at great length � 52 mins
Original Note:
Today's Communication/Plan
-
Dispo-prefers to be discharged to [facility].
Otherwise discharged home to attend AA.
Dispo planning in a.m.
Assessment / Plan
Assessment / Plan
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
ETOH Withdrawal/Delirium Tremens/AUD
- DC MSAS protocol as patient exhibiting signs of tolerance/dependence, scores improved.
- unable to switch to phenobarb due to Latuda interaction
-Currently on Latuda and Klonopin as needed.
-Reports auditory hallucinations (hearing music), and visual hallucinations, however denies suicidal ideation and command hallucinations.
-Unable to discharge to rehab due to [place] insurance.
-Patient wants to be discharged to [facility] to seek further help.
- cont MVI/thiamine/folate
# Possible Bipolar II
- cont latuda
- appreciate psych input
- monitor closely for response
- cont prozac
Acidosis
-resolved
Dispo-prefers to be discharged to [facility].
Otherwise discharged home to attend .
DVT prophylaxis: Heparin
CODE STATUS: Full code
Anticipated Discharge: Within 24 hours
Subjective/Interval History
-
Date of Service: August 31, 2023
Patient reports continued visual and auditory hallucinations. However denies suicidal ideation and command hallucinations.
Objective Data
-
Vital Signs:
Vital Signs
Temp Pulse Resp BP Pulse Ox
97.4 F 80 19 115/62 97
08/31/23 14:55 08/31/23 14:55 08/31/23 14:55 08/31/23 14:55 08/31/23 14:55
I&O
08/30/23 08/31/23 09/01/23
06:59 06:59 06:59
Intake Total 1320 / 1320 1440 / 1440 600 / 600
Balance 1320 / 1320 1440 / 1440 600 / 600
Review of Systems
-
History Source: Patient
All other systems: Not reviewed unless documented
Constitutional: Reports Sleep Disturbance
Respiratory: Reports No Symptoms
Cardiac: Reports No Symptoms
Abdomen/GI: Reports No Symptoms
Genitourinary: Reports No Symptoms
Musculoskeletal: Reports No Symptoms
Skin: Reports No Symptoms
Neuro: Denies Headache or Weakness
Psych: Denies Depressed
Physical Exam
-
General: Well Developed, Well Nourished and No Apparent Distress
Respiratory: Clear to Auscultation
Cardiac: Regular Rhythm and S1/S2; Negative Murmur
GI: Soft, Nondistended and Normal Bowel Sounds
Musculoskeletal: No Clubbing, No Cyanosis and No Edema
Skin: Warm
Neuro: Awake, Alert, Oriented and AO x 3
Psych: Calm and Intact Judgement/Insight
Data Reviewed
-
Diagnostic Radiology: Image personally visualized and interpreted and Report Reviewed by me
Labs: Labs Reviewed by me and Discussed with Physician
Old Records: Reviewed
[2023-08-31] MEDS: LATUDA 20 MG PO (21:15)
[2023-08-31 23:10] VITALS: BP 114/71
[2023-09-01] MEDS: KLONOPIN 0.5 MG PO ×2 (04:43→10:42)
[2023-09-01 08:42] VITALS: BP 111/69
[2023-09-01] MEDS: FOLVITE 1 MG PO (09:17)
[2023-09-01] MEDS: NEURONTIN 300 MG PO (09:17)
[2023-09-01] MEDS: THERAGRAN 1 TABLET PO (09:18)
[2023-09-01] MEDS: VITAMIN B1 100 MG PO (09:28)
--- NOTE | 2023-09-01 09:29 | W.PN.HOSP.TC ---
Addendum entered and electronically signed by Robe Huggins MD 09/01/23 15:26:
Attending Addendum-
I saw and evaluated the patient. I reviewed the resident�s note and agree with findings and plan as documented in the resident�s note. Sub: wants to home. Denies hallucinations. has family coming to transport him. tremors much improved. Full 12
point ROS reviewed and negative except as documented Exam: Vitals reviewed in chart GEN-NAD heart regular rhythm abd soft LE no edema Neuro AAO x 3 no tremor Plan-
# ETOH Withdrawal/Delirium Tremens
- DC MSAS
- keep medical info confidential
- cont gabapentin
- cont MVI/thiamine/folate
- unfortunately unable unable to send to [place] due to insurance issues
- will provide support and DC home
- counselled re quitting and attending AA
# Possible Bipolar II
- cont latuda today
- appreciate psych input
- monitor closely for response
- cont prozac
# Acidosis
- resolved
Dispo- DC home today with family
full code
Heparin for DVT prophylaxis
Time spent coordinating care, review of plan of care with resident, personally reviewed records in EMR, med [facility], DC planning, transition of care, consults, notes, labs, radiology, d/w nursing psych and CM at great length � 35 mins
Original Note:
Today's Communication/Plan
-
Patient threatening to leave AGAINST MEDICAL ADVICE, discharge home
Assessment / Plan
Assessment / Plan
Assessment: 48-year-old male presented with complaints of labs to alcohol use, binge drinking for 10 days [employer]PL[employer], visual and auditory hallucinations, shaky and tremulous on presentation.
ETOH Withdrawal/Delirium Tremens/AUD
- DC MSAS protocol on 08/30/2023 as patient exhibiting signs of tolerance/dependence, scores improved.
- unable to switch to phenobarb due to Latuda interaction
-MSAS protocol and Ativan as needed were discontinued greater than 48 hours prior.
-Currently on Latuda and Klonopin as needed.
-Reports auditory hallucinations (hearing music), and visual hallucinations, however denies suicidal ideation and command hallucinations.
-Later in the day with the attending present, before discharge, the patient reports that he is not having hallucinations anymore at this time.
-Unable to discharge to rehab due to [place] insurance.
-Patient was off of Ativan and phenobarbital for greater than 48 hours. Tremors have subsided. No signs of worsening of withdrawal or seizure-like activities. Vitals have remained stable.
�Social work was consulted and was not able to find him placement previously. It is 31 August and they are likely not going to be able to find him anything today.
-Patient threatened to leave AGAINST MEDICAL ADVICE if not discharged promptly before 12:00 today. Patient states that he wants to go home he lives in [place] with his mother and father and that he will seek inpatient treatment later. Will
discharge patient home.
# Possible Bipolar II
-Patient says that hallucinations are better on Latuda.
- cont latuda
- cont prozac
Acidosis
-resolved
Dispo-prefers to be discharged home, patient states he will seek treatment at the [facility] or the [facility] on his own terms, at a later time. Patient will be discharged home to [place] with his family.
DVT prophylaxis: Heparin
CODE STATUS: Full code
Anticipated Discharge: Today
Subjective/Interval History
-
Date of Service: September 01, 2023
Patient threatened to leave AGAINST MEDICAL ADVICE if not discharged before 12:00
Objective Data
-
Vital Signs:
Vital Signs
Temp Pulse Resp BP Pulse Ox
97.8 F 82 18 111/69 98
09/01/23 08:42 09/01/23 08:42 09/01/23 08:42 09/01/23 08:42 09/01/23 08:42
I&O
08/31/23 09/01/23 09/02/23
06:59 06:59 06:59
Intake Total 1440 / 1440 1080 / 1080
Balance 1440 / 1440 1080 / 1080
Review of Systems
-
History Source: Patient
All other systems: Reviewed and negative
Constitutional: Reports No Symptoms
EENT: Reports No Symptoms Reported
Respiratory: Reports No Symptoms
Cardiac: Reports No Symptoms
Abdomen/GI: Reports No Symptoms
Psych: Reports Other (Still endorses audio and visual hallucinations)
Physical Exam
-
General: Well Developed, Well Nourished, No Apparent Distress and Comfortable
Respiratory: Clear to Auscultation
Cardiac: Regular Rhythm and S1/S2
GI: Soft, Nontender and Nondistended
Neuro: Awake, Alert, Oriented and AO x 3; Negative Tremors
Psych: Calm
Data Reviewed
-
Labs: Labs Reviewed by me and Discussed with Physician
== END 2023-09-01 11:33 | disposition home or self-care (01) | DRG 897 ==
LOC: 4 WEST ACU 19:26
PROVIDERS: Nurse Practitioner; Student in an Organized Health Care Education/Training Program; ADMITTING PHYSICIAN Internal Medicine; ATTENDING PHYSICIAN Family Medicine; EMERGENCY PHYSICIAN Emergency Medicine; OTHER PHYSICIAN Internal Medicine; OTHER PHYSICIAN Psychiatry & Neurology Psychiatry
DX: F10.239 Alcohol dependence with withdrawal, unspecified (principal); E87.20 Acidosis, unspecified; E87.1 Hypo-osmolality and hyponatremia; F31.81 Bipolar II disorder; R44.0 Auditory hallucinations; Z11.52 Encounter for screening for COVID-19; R44.1 Visual hallucinations
CPT/HCPCS: 71045; 80053; 80178; 80306; 80307; 81003; 82077; 82248; 83605; 83735; 85025; 85027; 85610; 93005; 96361; 96374; 96375; 99285